=== PATIENT | male | born 1965 | race African-American/Black ===

== ENCOUNTER 2017-04-03 10:17 | Inpatient (IN) | payer OTHER ==
[2017-04-03 11:05] VITALS: BMI 26.4
--- NOTE | 2017-04-03 11:09 | HP ---
CIWA Score - CIWA Score Nausea/Vomitin-Mild Nausea/No Vomiting Muscle Tremors: 4-Moderate,w/Arms Extend Anxiety: 4-Mod. Anxious/Guarded Agitation: 1-Slight > Activity Paroxysmal Sweats: 1-Minimal Palms Moist Orientation: 0-Oriented Tacttile Disturbances: 0-None Auditory Disturbances: 1-Very Mild Visual Disturbances: 1-Very Mild Sensitivity Headache: 2-Mild CIWA-Ar Total Score: 15 Admission ROS BHS - HPI Chief Complaint: I want help to stop using drugs and drinking Allergies/Adverse Reactions: Allergies Allergy/AdvReac Type Severity Reaction Status Date / Time No Known Allergies Allergy Verified 04/03/17 11:41 History of Present Illness: 52 yo gentleman here for detox from alcohol, also using cocaine. Last time in detox 3 days ago at [facility] but only stayed one day - prior to that last time in detox was here May 2016. NO seizures but did have black out. Exam Limitations: Clinical Condition - Ebola screening Have you traveled outside of the country in the last 21 days: No Have you had contact with anyone from an Ebola affected area: No Do you have a fever: No - Review of Systems Constitutional: Loss of Appetite, Changes in sleep EENT: reports: No Symptoms Reported Respiratory: reports: No Symptoms reported Cardiac: reports: No Symptoms Reported GI: reports: Poor Appetite, Indigestion : reports: Frequency Musculoskeletal: reports: No Symptoms Reported Integumentary: reports: No Symptoms Reported Neuro: reports: Headache Endocrine: reports: No Symptoms Reported Hematology: reports: No Symptoms Reported Psychiatric: reports: Judgement Intact, Mood/Affect Appropiate, Orientated x3, Anxious Other Systems: Reviewed and Negative Patient History - Patient Medical History Hx Anemia: No Hx Asthma: No Hx Chronic Obstructive Pulmonary Disease (COPD): No Hx Cancer: No Hx Cardiac Disorders: No Hx Congestive Heart Failure: No Hx Hypertension: Yes Hx Hypercholesterolemia: No Hx Pacemaker: No HX Cerebrovascular Accident: No Hx Seizures: No Hx Dementia: No Hx Diabetes: No Hx Gastrointestinal Disorders: No Hx Liver Disease: No Hx Genitourinary Disorders: No Hx Sexually Transmitted Disorders: No Hx Renal Disease (ESRD): No Hx Thyroid Disease: No Hx Human Immunodeficiency Virus (HIV): No Hx Hepatitis C: No Hx Depression: No Hx Suicide Attempt: No Hx Bipolar Disorder: No Hx Schizophrenia: No - Patient Surgical History Past Surgical History: No Hx Neurologic Surgery: No Hx Cataract Extraction: No Hx Cardiac Surgery: No Hx Lung Surgery: No Hx Breast Surgery: No Hx Breast Biopsy: No Hx Abdominal Surgery: No Hx Appendectomy: No Hx Cholecystectomy: No Hx Genitourinary Surgery: No Hx Section: No Hx Orthopedic Surgery: No Anesthesia Reaction: No - PPD History Previous Implant?: Yes Documented Results: Negative w/proof Date: 09/03/15 Results: 0mm PPD to be Administered?: Yes - Reproductive History Patient is a Female of Child Bearing Age (11 -55 yrs old): No (male) - Smoking Cessation Smoking history: Current every day smoker Have you smoked in the past 12 months: Yes Aproximately how many cigarettes per day: 10 Cigars Per Day: 0 Hx Chewing Tobacco Use: No Initiated information on smoking cessation: Yes 'Breaking Loose' booklet given: 04/03/17 (give on floor) - Substance & Tx. History Hx Alcohol Use: Yes Hx Substance Use: Yes Substance Use Type: Alcohol, Cocaine Hx Substance Use Treatment: Yes (detox, rehab) - Substances Abused Alcohol Route: Oral Frequency: Daily Amount used: two 40oz beers; two 1/2 pints Age of first use: 30 Date of Last Use: 04/03/17 Cocaine Route: Smoking Frequency: Daily Amount used: $200 Age of first use: 30 Date of Last Use: 04/03/17 Family Disease History - Family Disease History Family Disease History: CA: Father (ALZHIEMERS ), Mother (ALZHIEMERS ), Other: Father, Mother, Brother (3 - living, in recovery), Sister (3 - living , in recovery), Son (1 - age 20 - healthy), Daughter (1 - age 21 - no contact) Admission Physical Exam BHS - Vital Signs Vital Signs: Vital Signs Period Temp Pulse Resp BP Sys/Martinez Pulse Ox Last 24 Hr 96.6 F 64 18 129/78 - Physical General Appearance: Yes: Nourished, Appropriately Dressed, Mild Distress, Tremorous, Anxious HEENTM: Yes: Hearing grossly Normal, Normal ENT Inspection, Normocephalic, Normal Voice, Pharynx Normal, Other (coated tongue) Respiratory: Yes: Normal Breath Sounds, No Respiratory Distress Neck: Yes: No masses,lesions,Nodules, Supple Breast: Yes: Breast Exam Deferred Cardiology: Yes: Regular Rhythm, Regular Rate Abdominal: Yes: Soft Genitourinary: Yes: Frequency Back: Yes: Normal Inspection Musculoskeletal: Yes: full range of Motion, Gait Steady Extremities: Yes: Normal Inspection, Normal Range of Motion, Non-Tender Neurological: Yes: Fully Oriented, Alert, Normal Mood/Affect, Normal Response Integumentary: Yes: Normal Color, Dry, Warm Lymphatic: Yes: Within Normal Limits - Diagnostic (1) Alcohol dependence with uncomplicated withdrawal Current Visit: Yes Status: Chronic (2) Cocaine dependence Current Visit: Yes Status: Chronic Qualifiers: Substance use status: uncomplicated Qualified Code(s): F14.20 - Cocaine dependence, uncomplicated (3) HTN (hypertension) Current Visit: Yes Status: Chronic Qualifiers: Hypertension type: essential hypertension Qualified Code(s): I10 - Essential (primary) hypertension (4) Nicotine dependence Current Visit: Yes Status: Chronic Qualifiers: Nicotine product type: cigarettes Substance use status: uncomplicated Qualified Code(s): F17.210 - Nicotine dependence, cigarettes, uncomplicated Cleared for Admission BHS - Detox or Rehab [facility] Level of Care: Medically Managed Detox Regimen/Protocol: Librium [facility] Breath Alcohol Content Breath Alcohol Content: 0
[2017-04-03] MEDS ORDERED: MAG HYDROX/AL HYDROX/SIMETH 30 ML UNIT-DOSE CUP PO PRN (11:23)
[2017-04-03] MEDS ORDERED: chlordiazePOXIDE HCL 25 MG CAPSULE PO PRN (11:23)
[2017-04-03] MEDS ORDERED: hydrOXYzine PAMOATE 50 MG CAPSULE (FP) PO PRN (11:23)
[2017-04-03] MEDS ORDERED: IBUPROFEN 400 MG TABLET (FP) PO PRN (11:23)
[2017-04-03] MEDS ORDERED: guaiFENesin/D-METHORPHAN HB 10 ML UNIT-DOSE CUPS PO PRN (11:23)
[2017-04-03] MEDS ORDERED: LOPERAMIDE HCL 2 MG CAPSULE PO PRN (11:23)
[2017-04-03] MEDS ORDERED: MAGNESIUM HYDROX 2400MG/30ML ORAL SUSPENSION 30 ML CUP PO PRN (11:23)
[2017-04-03] MEDS ORDERED: P-EPHED 60MG/TRIPROLIDI 2.5MG TABLET PO PRN (11:23)
[2017-04-03] MEDS ORDERED: ACETAMINOPHEN 325 MG TABLET (FP) PO PRN (11:23)
[2017-04-03] MEDS ORDERED: MAGNESIUM CITRATE 300 ML BOTTLE PO PRN (11:23)
[2017-04-03] MEDS ORDERED: MENTHOL/PHENOL 1 EACH UD MM PRN (11:23)
[2017-04-03] MEDS ORDERED: chlordiazePOXIDE HCL 25 MG CAPSULE PO ONE (12:00)
[2017-04-03] MEDS: amLODIPine BESYLATE 10 MG TABLET (FP) PO SCH (13:14)
[2017-04-03] MEDS: chlordiazePOXIDE HCL 25 MG CAPSULE PO SCH ×2 (18:09→23:20)
[2017-04-03] MEDS ORDERED: diphenhydrAMINE HCL 50 MG CAPSULE PO PRN (22:00)
[2017-04-03 22:34] LABS: URINE APPEARANCE CLEAR; URINE BILIRUBIN NEGATIVE (NEGATIVE); URINE BLOOD 3+ (NEGATIVE); URINE COLOR LTYELLOW; URINE GLUCOSE (UA) NEGATIVE (NEGATIVE); URINE KETONE NEGATIVE (NEGATIVE); URINE LEUK ESTERASE NEGATIVE (NEGATIVE); URINE NITRITE NEGATIVE (NEGATIVE); URINE PROTEIN NEGATIVE (NEGATIVE); URINE UROBILINOGEN NEGATIVE mg/dL (0.2-1.0)
[2017-04-03 22:44] LABS: URINE BACTERIA RARE /hpf (NONE SEEN); URINE HYALINE CAST 3 /lpf; URINE MUCUS RARE; URINE RBC 2 /hpf (0-3); URINE WBC <1 /hpf (3-5)
[2017-04-03] MEDS: THIAMINE HCL 100 MG TABLET (FP) PO SCH (23:19)
[2017-04-04] MEDS: chlordiazePOXIDE HCL 25 MG CAPSULE PO SCH ×4 (05:45→22:19)
[2017-04-04 09:52] LABS: MCH 29.9 pg (25.7-33.7); MEAN CELL VOLUME 90.7 fl (80-96); MEAN PLT VOLUME 9.5 fl (7.5-11.1); PLATELET COUNT 175 K/MM3 (134-434); RDW 14.9 % (11.9-15.9); WHITE BLOOD COUNT 5.6 K/mm3 (4.0-10.0)
--- NOTE | 2017-04-04 09:55 | EKG ---
Test Reason : Blood Pressure : / mmHG Vent. Rate : 067 BPM Atrial Rate : 067 BPM P-R Int : 172 ms QRS Dur : 080 ms QT Int : 420 ms P-R-T Axes : 082 067 049 degrees QTc Int : 443 ms NORMAL SINUS RHYTHM SEPTAL INFARCT , AGE UNDETERMINED ABNORMAL ECG NO PREVIOUS ECGS AVAILABLE Confirmed by MD SANDY, DEBBY ([id number]) on 04/04/2017 9:55:11 AM Referred By: Confirmed By:DEBBY DELGADO MD
[2017-04-04 10:29] LABS: ALK PHOS 43 U/L (45-117); ANION GAP 9 (8-16); BILIRUBIN,TOTAL 0.7 mg/dL (0.2-1.0); CALCIUM 8.4 mg/dL (8.5-10.1); CO2 29 mmol/L (21-32); CREATININE 1.4 mg/dL (0.7-1.3); GLUCOSE,RANDOM 80 mg/dL (74-106); SGOT/AST 25 U/L (15-37); SGPT/ALT 27 U/L (12-78); TOT PROT 5.7 g/dl (6.4-8.2)
[2017-04-04] MEDS: amLODIPine BESYLATE 10 MG TABLET (FP) PO SCH (10:41)
[2017-04-04] MEDS: PRENATAL VITAMINS W/ FOLIC ACID TABLET (FP) PO SCH (10:41)
--- NOTE | 2017-04-04 16:26 | PN ---
S CIWA - CIWA Score Nausea/Vomitin Muscle Tremors: 4-Moderate,w/Arms Extend Anxiety: 4-Mod. Anxious/Guarded Agitation: 4-Moderately Restless Paroxysmal Sweats: 3 Orientation: 0-Oriented Tacttile Disturbances: 1-Very Mild Itch/Numbness Auditory Disturbances: 0-None Visual Disturbances: 0-None Headache: 2-Mild CIWA-Ar Total Score: 21 BHS Progress Note (SOAP) Subjective: Sweating, nausea, tremor, chills, interrupted sleep Objective: 04/04/17 16:22 Last Vital Signs Temp Pulse Resp BP Pulse Ox 97.3 F L 69 18 125/89 04/04/17 06:00 04/04/17 06:00 04/04/17 06:00 04/04/17 06:00 Laboratory Tests 04/03/17 04/04/17 04/04/17 22:00 07:50 07:50 WBC 5.6 RBC 4.27 Hgb 12.8 Hct 38.7 MCV 90.7 MCH 29.9 MCHC 33.0 RDW 14.9 Plt Count 175 MPV 9.5 Sodium 145 Potassium 3.6 Chloride 107 Carbon Dioxide 29 Anion Gap 9 BUN 24 H D Creatinine 1.4 H Creat Clearance w eGFR 53.22 Random Glucose 80 Calcium 8.4 L Total Bilirubin 0.7 D AST 25 D ALT 27 D Alkaline Phosphatase 43 L Total Protein 5.7 L Albumin 3.0 L Urine Color Ltyellow Urine Appearance Clear Urine pH 5.0 Ur Specific [place] 1.025 Urine Protein Negative Urine Glucose (UA) Negative Urine Ketones Negative Urine Blood 3+ H Urine Nitrite Negative Urine Bilirubin Negative Urine Urobilinogen Negative Ur Leukocyte Esterase Negative Urine RBC 2 Urine WBC <1 Urine Bacteria Rare Hyaline Casts 3 Urine Mucus Rare RPR Titer 04/04/17 07:50 WBC RBC Hgb Hct MCV MCH MCHC RDW Plt Count MPV Sodium Potassium Chloride Carbon Dioxide Anion Gap BUN Creatinine Creat Clearance w eGFR Random Glucose Calcium Total Bilirubin AST ALT Alkaline Phosphatase Total Protein Albumin Urine Color Urine Appearance Urine pH Ur Specific [place] Urine Protein Urine Glucose (UA) Urine Ketones Urine Blood Urine Nitrite Urine Bilirubin Urine Urobilinogen Ur Leukocyte Esterase Urine RBC Urine WBC Urine Bacteria Hyaline Casts Urine Mucus RPR Titer Nonreactive Labs noted: BUN 24, serum creatinine 1.4, GFR 53.22, abnormal UA Assessment: 04/04/17 16:26 Withdrawal symptoms Noted with TONIA and abnormal UA Plan: Continue detox TONIA: encouraged to drink more water, repeat BMP Abnormal UA: encouraged to drink more water, repeat UA
[2017-04-04] MEDS: THIAMINE HCL 100 MG TABLET (FP) PO SCH (22:19)
[2017-04-05] MEDS: chlordiazePOXIDE HCL 25 MG CAPSULE PO SCH ×2 (05:33→10:38)
[2017-04-05 10:22] LABS: ANION GAP 7 (8-16); CALCIUM 8.5 mg/dL (8.5-10.1); CO2 29 mmol/L (21-32); CREATININE 1.2 mg/dL (0.7-1.3); GLUCOSE,RANDOM 77 mg/dL (74-106)
[2017-04-05] MEDS: amLODIPine BESYLATE 10 MG TABLET (FP) PO SCH (10:38)
[2017-04-05] MEDS: PRENATAL VITAMINS W/ FOLIC ACID TABLET (FP) PO SCH (10:38)
--- NOTE | 2017-04-05 11:00 | PN ---
S CIWA - CIWA Score Nausea/Vomitin Muscle Tremors: 4-Moderate,w/Arms Extend Anxiety: 4-Mod. Anxious/Guarded Agitation: 4-Moderately Restless Paroxysmal Sweats: 3 Orientation: 0-Oriented Tacttile Disturbances: 1-Very Mild Itch/Numbness Auditory Disturbances: 0-None Visual Disturbances: 0-None Headache: 1-Very Mild CIWA-Ar Total Score: 20 BHS Progress Note (SOAP) Subjective: nausea, sweats, interrupted sleep, anxiety, tremors Objective: 04/05/17 10:59 Vital Signs - 8 hr 04/05/17 04/05/17 04/05/17 03:39 06:27 09:16 Temperature 96.7 F L 96.6 F L Pulse Rate 62 65 Respiratory 18 18 18 Rate Blood Pressure 136/96 131/97 Laboratory Tests 04/03/17 04/04/17 04/04/17 22:00 07:50 07:50 WBC 5.6 RBC 4.27 Hgb 12.8 Hct 38.7 MCV 90.7 MCH 29.9 MCHC 33.0 RDW 14.9 Plt Count 175 MPV 9.5 Sodium 145 Potassium 3.6 Chloride 107 Carbon Dioxide 29 Anion Gap 9 BUN 24 H D Creatinine 1.4 H Creat Clearance w eGFR 53.22 Random Glucose 80 Calcium 8.4 L Total Bilirubin 0.7 D AST 25 D ALT 27 D Alkaline Phosphatase 43 L Total Protein 5.7 L Albumin 3.0 L Urine Color Ltyellow Urine Appearance Clear Urine pH 5.0 Ur Specific [place] 1.025 Urine Protein Negative Urine Glucose (UA) Negative Urine Ketones Negative Urine Blood 3+ H Urine Nitrite Negative Urine Bilirubin Negative Urine Urobilinogen Negative Ur Leukocyte Esterase Negative Urine RBC 2 Urine WBC <1 Urine Bacteria Rare Hyaline Casts 3 Urine Mucus Rare RPR Titer 04/04/17 04/05/17 07:50 07:00 WBC RBC Hgb Hct MCV MCH MCHC RDW Plt Count MPV Sodium 144 Potassium 3.8 Chloride 108 H Carbon Dioxide 29 Anion Gap 7 L BUN 17 D Creatinine 1.2 Creat Clearance w eGFR Random Glucose 77 Calcium 8.5 Total Bilirubin AST ALT Alkaline Phosphatase Total Protein Albumin Urine Color Urine Appearance Urine pH Ur Specific [place] Urine Protein Urine Glucose (UA) Urine Ketones Urine Blood Urine Nitrite Urine Bilirubin Urine Urobilinogen Ur Leukocyte Esterase Urine RBC Urine WBC Urine Bacteria Hyaline Casts Urine Mucus RPR Titer Nonreactive Assessment: 04/05/17 11:00 withdrawal sx Plan: cont detox, fluids
[2017-04-05] MEDS: chlordiazePOXIDE 5 MG CAPSULE PO SCH ×2 (17:09→22:35)
[2017-04-05 20:02] LABS: URINE APPEARANCE CLEAR; URINE BILIRUBIN NEGATIVE (NEGATIVE); URINE BLOOD NEGATIVE (NEGATIVE); URINE COLOR LT. YELLOW; URINE GLUCOSE (UA) NEGATIVE (NEGATIVE); URINE KETONE NEGATIVE (NEGATIVE); URINE LEUK ESTERASE NEGATIVE (NEGATIVE); URINE NITRITE NEGATIVE (NEGATIVE); URINE PROTEIN NEGATIVE (NEGATIVE); URINE UROBILINOGEN 0.2 mg/dL (0.2-1.0)
[2017-04-05] MEDS: THIAMINE HCL 100 MG TABLET (FP) PO SCH (22:35)
[2017-04-06] MEDS: chlordiazePOXIDE 5 MG CAPSULE PO SCH ×2 (05:39→10:34)
[2017-04-06] MEDS: PRENATAL VITAMINS W/ FOLIC ACID TABLET (FP) PO SCH (10:34)
[2017-04-06] MEDS: amLODIPine BESYLATE 10 MG TABLET (FP) PO SCH (10:34)
--- NOTE | 2017-04-06 12:41 | PN ---
BHS Progress Note (SOAP) Subjective: DECREASED ANXIETY,TREMORS. Objective: 04/06/17 12:40 Vital Signs Temperature 98.5 F 04/06/17 09:21 Pulse Rate 66 04/06/17 09:21 Respiratory Rate 16 04/06/17 09:21 Blood Pressure 138/97 04/06/17 09:21 O2 Sat by Pulse Oximetry (%) Laboratory Last Values WBC 5.6 K/mm3 (4.0-10.0) 04/04/17 07:50 RBC 4.27 M/mm3 (4.00-5.60) 04/04/17 07:50 Hgb 12.8 GM/dL (11.7-16.9) 04/04/17 07:50 Hct 38.7 % (35.4-49) 04/04/17 07:50 MCV 90.7 fl (80-96) 04/04/17 07:50 MCH 29.9 pg (25.7-33.7) 04/04/17 07:50 MCHC 33.0 g/dl (32.0-35.9) 04/04/17 07:50 RDW 14.9 % (11.9-15.9) 04/04/17 07:50 Plt Count 175 K/MM3 (134-434) 04/04/17 07:50 MPV 9.5 fl (7.5-11.1) 04/04/17 07:50 Sodium 144 mmol/L (136-145) 04/05/17 07:00 Potassium 3.8 mmol/L (3.5-5.1) 04/05/17 07:00 Chloride 108 mmol/L (98-107) H 04/05/17 07:00 Carbon Dioxide 29 mmol/L (21-32) 04/05/17 07:00 Anion Gap 7 (8-16) L 04/05/17 07:00 BUN 17 mg/dL (7-18) D 04/05/17 07:00 Creatinine 1.2 mg/dL (0.7-1.3) 04/05/17 07:00 Creat Clearance w eGFR 53.22 (>60) 04/04/17 07:50 Random Glucose 77 mg/dL (74-106) 04/05/17 07:00 Calcium 8.5 mg/dL (8.5-10.1) 04/05/17 07:00 Total Bilirubin 0.7 mg/dL (0.2-1.0) D 04/04/17 07:50 AST 25 U/L (15-37) D 04/04/17 07:50 ALT 27 U/L (12-78) D 04/04/17 07:50 Alkaline Phosphatase 43 U/L (45-117) L 04/04/17 07:50 Total Protein 5.7 g/dl (6.4-8.2) L 04/04/17 07:50 Albumin 3.0 g/dl (3.4-5.0) L 04/04/17 07:50 Urine Color Lt. yellow 04/05/17 15:39 Urine Appearance Clear 04/05/17 15:39 Urine pH 8.0 (5.0-8.0) D 04/05/17 15:39 Ur Specific [place] 1.020 (1.005-1.025) 04/05/17 15:39 Urine Protein Negative (NEGATIVE) 04/05/17 15:39 Urine Glucose (UA) Negative (NEGATIVE) 04/05/17 15:39 Urine Ketones Negative (NEGATIVE) 04/05/17 15:39 Urine Blood Negative (NEGATIVE) 04/05/17 15:39 Urine Nitrite Negative (NEGATIVE) 04/05/17 15:39 Urine Bilirubin Negative (NEGATIVE) 04/05/17 15:39 Urine Urobilinogen 0.2 mg/dL (0.2-1.0) 04/05/17 15:39 Ur Leukocyte Esterase Negative (NEGATIVE) 04/03/17 22:00 Urine RBC 2 /hpf (0-3) 04/03/17 22:00 Urine WBC <1 /hpf (3-5) 04/03/17 22:00 Urine Bacteria Rare /hpf (NONE SEEN) 04/03/17 22:00 Hyaline Casts 3 /lpf 04/03/17 22:00 Urine Mucus Rare 04/03/17 22:00 RPR Titer Nonreactive (NONREACTIVE) 04/04/17 07:50 Assessment: 04/06/17 12:41 WITHDRAWAL SX Plan: CONTINUE DETOX
[2017-04-06 13:03] LABS: HIV 1 & 2 AB NEGATIVE; HIV 1 AGp24 NEGATIVE
[2017-04-06] MEDS ORDERED: chlordiazePOXIDE HCL 10 MG CAPSULE PO SCH (17:00)
--- NOTE | 2017-04-06 21:59 | DS ---
[facility] Detox Discharge Summary Admission Date: 04/03/17 Discharge Date: 04/06/17 - History Present History: Alcohol Dependence Additional Comments: PT. DENIES DETOX SYMPTOMS AND REPORTS HE FEELS WELL. HE REQUESTED AN EARLY DISCHARGE. PT. STATED HE DID NOT NEED A REFERRAL FOR REHAB SERVICES SINCE HE PLANS TO GO TO [facility] IN THE MORNING FOR CONTINUED TREATMENT. PT. DISCHARGED FROM DETOX WITH REFILLS FOR REQUESTED MEDICATIONS. Pertinent Past History: HTN - Physical Exam Results Vital Signs: Vital Signs Temperature 97.0 F L 04/06/17 17:26 Pulse Rate 74 04/06/17 17:26 Respiratory Rate 18 04/06/17 17:26 Blood Pressure 114/72 04/06/17 17:26 O2 Sat by Pulse Oximetry (%) - Treatment Hospital Course: Detox Protocol Followed, Detoxed Safely, Responded well, Discharged Condition Good Patient has Accepted a Rehab Referral to: STATES HE PLANS TO GO TO [facility] FOR OUTPATIENT SERVICES IN THE MORN - Medication Discharge Medications: Ambulatory Orders Amlodipine Besylate [Norvasc -] 10 mg PO DAILY #30 tablet 04/06/17 - Diagnosis (1) Alcohol dependence with uncomplicated withdrawal Current Visit: Yes Status: Chronic (2) HTN (hypertension) Current Visit: Yes Status: Chronic Qualifiers: Hypertension type: essential hypertension Qualified Code(s): I10 - Essential (primary) hypertension (3) Nicotine dependence Current Visit: Yes Status: Chronic Qualifiers: Nicotine product type: cigarettes Substance use status: uncomplicated Qualified Code(s): F17.210 - Nicotine dependence, cigarettes, uncomplicated (4) Cocaine dependence Current Visit: Yes Status: Chronic Qualifiers: Substance use status: uncomplicated Qualified Code(s): F14.20 - Cocaine dependence, uncomplicated - AMA Did Patient Leave Against Medical Advice: No
[2017-04-06 22:17] VITALS: BP 123/77; PULSE 83; TEMP 98.3
== END 2017-04-06 22:19 | disposition home or self-care (01) | DRG 773 ==
LOC: YASAS 10:17 → Y3N 11:46
PROVIDERS: ADMIT Internal Medicine Addiction Medicine; ATTEND Internal Medicine Addiction Medicine
PROC: HZ2ZZZZ Detoxification Services for Substance Abuse Treatment (ICD-10-PCS; principal; 2017-04-03)
DX: F11.23 Opioid dependence with withdrawal (principal); F14.20 Cocaine dependence, uncomplicated; F17.210 Nicotine dependence, cigarettes, uncomplicated; I10 Essential (primary) hypertension; N17.9 Acute kidney failure, unspecified; R82.90 Unspecified abnormal findings in urine; Z59.0 Homelessness
CPT/HCPCS: 36415; 80048; 80053; 81003; 81015; 85027; 86593; 87389; 93005; 93010

== ENCOUNTER 2017-06-14 15:48 | Inpatient (IN) | payer OTHER ==
[2017-06-14 17:34] VITALS: BMI 26.4
--- NOTE | 2017-06-14 20:23 | HP ---
CIWA Score - CIWA Score Nausea/Vomitin-No Nausea/No Vomiting Muscle Tremors: 4-Moderate,w/Arms Extend Anxiety: 4-Mod. Anxious/Guarded Agitation: 4-Moderately Restless Paroxysmal Sweats: 1-Minimal Palms Moist Orientation: 0-Oriented Tacttile Disturbances: 0-None Auditory Disturbances: 0-None Visual Disturbances: 0-None Headache: 1-Very Mild CIWA-Ar Total Score: 14 Admission ROS BHS - HPI Chief Complaint: withdrawal sx Allergies/Adverse Reactions: Allergies Allergy/AdvReac Type Severity Reaction Status Date / Time No Known Allergies Allergy Verified 04/03/17 11:41 History of Present Illness: 52 years old male with long history of alcohol cocaine nicotine dependence has hypertension is admitted to detox Exam Limitations: No Limitations - Ebola screening Have you traveled outside of the country in the last 21 days: No Have you had contact with anyone from an Ebola affected area: No Have you been sick,other than usual withdrawal symptoms: No Do you have a fever: No - Review of Systems Constitutional: Chills, Weight Stable EENT: reports: No Symptoms Reported Respiratory: reports: No Symptoms reported Cardiac: reports: No Symptoms Reported GI: reports: Nausea, Poor Fluid Intake, Abdominal cramping : reports: No Symptoms Reported Musculoskeletal: reports: No Symptoms Reported Integumentary: reports: Dryness Neuro: reports: Tremors Endocrine: reports: No Symptoms Reported Hematology: reports: No Symptoms Reported Psychiatric: reports: Judgement Intact, Mood/Affect Appropiate, Orientated x3 Other Systems: Reviewed and Negative Patient History - Patient Medical History Hx Anemia: No Hx Asthma: No Hx Chronic Obstructive Pulmonary Disease (COPD): No Hx Cancer: No Hx Cardiac Disorders: No Hx Congestive Heart Failure: No Hx Hypertension: Yes Hx Hypercholesterolemia: No Hx Pacemaker: No HX Cerebrovascular Accident: No Hx Seizures: No Hx Dementia: No Hx Diabetes: No Hx Gastrointestinal Disorders: No Hx Liver Disease: No Hx Genitourinary Disorders: No Hx Sexually Transmitted Disorders: No Hx Renal Disease (ESRD): No Hx Thyroid Disease: No Hx Human Immunodeficiency Virus (HIV): No Hx Hepatitis C: No Hx Depression: No Hx Suicide Attempt: No Hx Bipolar Disorder: No Hx Schizophrenia: No - Patient Surgical History Past Surgical History: No Hx Neurologic Surgery: No Hx Cataract Extraction: No Hx Cardiac Surgery: No Hx Lung Surgery: No Hx Breast Surgery: No Hx Breast Biopsy: No Hx Abdominal Surgery: No Hx Appendectomy: No Hx Cholecystectomy: No Hx Genitourinary Surgery: No Hx Orthopedic Surgery: No - PPD History Previous Implant?: Yes Documented Results: Negative w/proof Implanted On Prior [facility] Admission?: Yes Date: 04/05/17 Results: 0mm PPD to be Administered?: No - Smoking Cessation Smoking history: Current every day smoker Have you smoked in the past 12 months: Yes Aproximately how many cigarettes per day: 2 Cigars Per Day: 0 Hx Chewing Tobacco Use: No Initiated information on smoking cessation: Yes 'Breaking Loose' booklet given: 06/14/17 - Substance & Tx. History Hx Alcohol Use: Yes Hx Substance Use: Yes Substance Use Type: Alcohol, Cocaine Hx Substance Use Treatment: Yes (02/2017 [facility] - Substances Abused Alcohol Route: Oral Frequency: Daily Amount used: LIQUOR- 1 PINT Age of first use: 30 Date of Last Use: 06/14/17 Crack Route: Smoking Frequency: Daily Amount used: 6 BAGS Age of first use: 30 Date of Last Use: 06/14/17 Family Disease History - Family Disease History Family Disease History: CA: Father (ALZHIEMERS ), Mother (ALZHIEMERS ), Other: Father, Mother, Brother (3 - living, in recovery), Sister (3 - living , in recovery), Son (1 - age 20 - healthy), Daughter (1 - age 21 - no contact) Admission Physical Exam BHS - Vital Signs Vital Signs: Vital Signs - 24 hr 06/14/17 17:31 Temperature 97.7 F Pulse Rate 80 Respiratory 18 Rate Blood Pressure 150/100 - Physical General Appearance: Yes: Appropriately Dressed, Mild Distress, Tremorous, Irritable, Sweating, Anxious HEENTM: Yes: Hearing grossly Normal, Normal ENT Inspection, Normocephalic, Normal Voice Respiratory: Yes: Chest Non-Tender, Lungs Clear, Normal Breath Sounds, No Respiratory Distress, No Accessory Muscle Use Neck: Yes: Supple, Trachea in good position Breast: Yes: Breasts Symetrical Cardiology: Yes: Regular Rhythm, Regular Rate, S1, S2 Abdominal: Yes: Normal Bowel Sounds, Non Tender, Soft Genitourinary: Yes: Within Normal Limits Back: Yes: Normal Inspection Musculoskeletal: Yes: full range of Motion, Gait Steady Extremities: Yes: Normal Inspection, Normal Range of Motion, Non-Tender, Tremors Neurological: Yes: Fully Oriented, Alert, Motor Strength 5/5, Normal Mood/Affect , Normal Response Integumentary: Yes: Dry, Warm Lymphatic: Yes: Within Normal Limits - Diagnostic (1) Alcohol dependence with uncomplicated withdrawal Current Visit: Yes Status: Acute (2) HTN (hypertension) Current Visit: Yes Status: Chronic Qualifiers: Hypertension type: essential hypertension Qualified Code(s): I10 - Essential (primary) hypertension (3) Nicotine dependence Current Visit: Yes Status: Acute Qualifiers: Nicotine product type: cigarettes Substance use status: in withdrawal Qualified Code(s): F17.213 - Nicotine dependence, cigarettes, with withdrawal Cleared for Admission [facility] - Detox or Rehab [facility] Level of Care: Medically Managed Detox Regimen/Protocol: Librium [facility] Breath Alcohol Content Breath Alcohol Content: 0 Urine Drug Screen - Results Drug Screen Negative: No Urine Drug Screen Results: OMAR-Cocaine
[2017-06-14] MEDS ORDERED: LOPERAMIDE HCL 2 MG CAPSULE PO PRN (20:25)
[2017-06-14] MEDS ORDERED: MENTHOL/PHENOL 1 EACH UD MM PRN (20:25)
[2017-06-14] MEDS ORDERED: guaiFENesin/D-METHORPHAN HB 10 ML UNIT-DOSE CUPS PO PRN (20:25)
[2017-06-14] MEDS ORDERED: MAGNESIUM CITRATE 300 ML BOTTLE PO PRN (20:25)
[2017-06-14] MEDS ORDERED: IBUPROFEN 400 MG TABLET (FP) PO PRN (20:25)
[2017-06-14] MEDS ORDERED: ACETAMINOPHEN 325 MG TABLET (FP) PO PRN (20:25)
[2017-06-14] MEDS ORDERED: NICOTINE POLACRILEX 2 MG GUM BC PRN (20:25)
[2017-06-14] MEDS ORDERED: P-EPHED 60MG/TRIPROLIDI 2.5MG TABLET PO PRN (20:25)
[2017-06-14] MEDS ORDERED: MAG HYDROX/AL HYDROX/SIMETH 30 ML UNIT-DOSE CUP PO PRN (20:25)
[2017-06-14] MEDS ORDERED: chlordiazePOXIDE HCL 25 MG CAPSULE PO PRN (20:25)
[2017-06-14] MEDS ORDERED: MAGNESIUM HYDROX 2400MG/30ML ORAL SUSPENSION 30 ML CUP PO PRN (20:25)
[2017-06-14] MEDS ORDERED: cloNIDine HCL 0.1 MG TABLET PO PRN (20:30)
[2017-06-14] MEDS: amLODIPine BESYLATE 10 MG TABLET (FP) PO SCH (21:15)
[2017-06-14] MEDS: THIAMINE HCL 100 MG TABLET (FP) PO SCH (21:18)
[2017-06-14] MEDS: chlordiazePOXIDE HCL 25 MG CAPSULE PO SCH (22:17)
[2017-06-14] MEDS: MINERAL OIL/PETROLAT/WATER TOPICAL CREAM 113 GM JAR TP SCH (22:53)
[2017-06-14] MEDS: OMEGA-3 ACID ETHYL ESTERS (FATTY-ACIDS) 1 GM CAPSULE (FP) PO SCH ×2 (22:54→22:55)
[2017-06-15 00:53] LABS: URINE APPEARANCE CLEAR; URINE BILIRUBIN NEGATIVE (NEGATIVE); URINE BLOOD 2+ (NEGATIVE); URINE COLOR YELLOW; URINE GLUCOSE (UA) NEGATIVE (NEGATIVE); URINE KETONE NEGATIVE (NEGATIVE); URINE NITRITE NEGATIVE (NEGATIVE); URINE PROTEIN NEGATIVE (NEGATIVE); URINE UROBILINOGEN NEGATIVE mg/dL (0.2-1.0)
[2017-06-15 01:13] LABS: URINE MUCUS RARE; URINE RBC 9 /hpf (0-3)
[2017-06-15] MEDS: chlordiazePOXIDE HCL 25 MG CAPSULE PO SCH ×4 (05:44→22:17)
[2017-06-15 09:54] LABS: MCH 29.4 pg (25.7-33.7); MCHC 32.5 g/dl (32.0-35.9); MEAN CELL VOLUME 90.5 fl (80-96); MEAN PLT VOLUME 9.6 fl (7.5-11.1); PLATELET COUNT 185 K/MM3 (134-434); RDW 14.5 % (11.9-15.9); WHITE BLOOD COUNT 5.4 K/mm3 (4.0-10.0)
[2017-06-15] MEDS: OMEGA-3 ACID ETHYL ESTERS (FATTY-ACIDS) 1 GM CAPSULE (FP) PO SCH ×2 (10:20→22:18)
[2017-06-15] MEDS: amLODIPine BESYLATE 10 MG TABLET (FP) PO SCH (10:20)
[2017-06-15] MEDS: PRENATAL VITAMINS W/ FOLIC ACID TABLET (FP) PO SCH (10:20)
[2017-06-15] MEDS: NICOTINE 14 MG/24 HOURS TOPICAL PATCH TD SCH (10:21)
[2017-06-15 10:35] LABS: ALBUMIN 3.4 g/dl (3.4-5.0); ALK PHOS 59 U/L (45-117); ANION GAP 8 (8-16); BILIRUBIN,TOTAL 0.5 mg/dL (0.2-1.0); CALCIUM 8.6 mg/dL (8.5-10.1); CO2 27 mmol/L (21-32); CREATININE 1.3 mg/dL (0.7-1.3); GLUCOSE,RANDOM 81 mg/dL (74-106); SGOT/AST 21 U/L (15-37); SGPT/ALT 25 U/L (12-78); TOT PROT 6.3 g/dl (6.4-8.2)
--- NOTE | 2017-06-15 11:08 | PN ---
[facility] CIWA - CIWA Score Nausea/Vomitin-No Nausea/No Vomiting Muscle Tremors: 4-Moderate,w/Arms Extend Anxiety: 4-Mod. Anxious/Guarded Agitation: 4-Moderately Restless Paroxysmal Sweats: 1-Minimal Palms Moist Orientation: 0-Oriented Tacttile Disturbances: 3-Moderate Itch/Numb/Burn Auditory Disturbances: 0-None Visual Disturbances: 0-None Headache: 0-None Present CIWA-Ar Total Score: 16 S Progress Note (SOAP) Subjective: ANXIETY,SWEATS,MUSCLE ACHES,FATIGUE. Objective: 06/15/17 11:08 Vital Signs Temperature 96.7 F L 06/15/17 10:26 Pulse Rate 84 06/15/17 10:26 Respiratory Rate 18 06/15/17 10:26 Blood Pressure 148/99 06/15/17 10:26 O2 Sat by Pulse Oximetry (%) Laboratory Last Values WBC 5.4 K/mm3 (4.0-10.0) 06/15/17 07:00 RBC 4.65 M/mm3 (4.00-5.60) 06/15/17 07:00 Hgb 13.7 GM/dL (11.7-16.9) 06/15/17 07:00 Hct 42.1 % (35.4-49) 06/15/17 07:00 MCV 90.5 fl (80-96) 06/15/17 07:00 MCH 29.4 pg (25.7-33.7) 06/15/17 07:00 MCHC 32.5 g/dl (32.0-35.9) 06/15/17 07:00 RDW 14.5 % (11.9-15.9) 06/15/17 07:00 Plt Count 185 K/MM3 (134-434) 06/15/17 07:00 MPV 9.6 fl (7.5-11.1) 06/15/17 07:00 Sodium 144 mmol/L (136-145) 06/15/17 07:00 Potassium 3.6 mmol/L (3.5-5.1) 06/15/17 07:00 Chloride 109 mmol/L (98-107) H 06/15/17 07:00 Carbon Dioxide 27 mmol/L (21-32) 06/15/17 07:00 Anion Gap 8 (8-16) 06/15/17 07:00 BUN 22 mg/dL (7-18) H D 06/15/17 07:00 Creatinine 1.3 mg/dL (0.7-1.3) 06/15/17 07:00 Creat Clearance w eGFR 57.97 (>60) 06/15/17 07:00 Random Glucose 81 mg/dL (74-106) 06/15/17 07:00 Calcium 8.6 mg/dL (8.5-10.1) 06/15/17 07:00 Total Bilirubin 0.5 mg/dL (0.2-1.0) D 06/15/17 07:00 AST 21 U/L (15-37) 06/15/17 07:00 ALT 25 U/L (12-78) 06/15/17 07:00 Alkaline Phosphatase 59 U/L (45-117) D 06/15/17 07:00 Total Protein 6.3 g/dl (6.4-8.2) L 06/15/17 07:00 Albumin 3.4 g/dl (3.4-5.0) 06/15/17 07:00 Urine Color Yellow 06/14/17 23:00 Urine Appearance Clear 06/14/17 23:00 Urine pH 5.0 (5.0-8.0) D 06/14/17 23:00 Ur Specific [place] 1.029 (1.001-1.035) 06/14/17 23:00 Urine Protein Negative (NEGATIVE) 06/14/17 23:00 Urine Glucose (UA) Negative (NEGATIVE) 06/14/17 23:00 Urine Ketones Negative (NEGATIVE) 06/14/17 23:00 Urine Blood 2+ (NEGATIVE) H 06/14/17 23:00 Urine Nitrite Negative (NEGATIVE) 06/14/17 23:00 Urine Bilirubin Negative (NEGATIVE) 06/14/17 23:00 Urine Urobilinogen Negative mg/dL (0.2-1.0) 06/14/17 23:00 Ur Epithelial Cells Rare /HPF (FEW) 06/14/17 23:00 Urine Mucus Rare 06/14/17 23:00 Assessment: 06/15/17 11:08 WITHDRAWAL SX Plan: CONTINUE DETOX
[2017-06-15 11:18] LABS: HIV 1 & 2 AB NEGATIVE; HIV 1 AGp24 NEGATIVE
[2017-06-15 11:40] LABS: URINE LEUK ESTERASE Negative (NEGATIVE)
--- NOTE | 2017-06-15 12:42 | EKG ---
Test Reason : Blood Pressure : / mmHG Vent. Rate : 073 BPM Atrial Rate : 073 BPM P-R Int : 170 ms QRS Dur : 080 ms QT Int : 388 ms P-R-T Axes : 081 083 062 degrees QTc Int : 427 ms NORMAL SINUS RHYTHM LEFT ATRIAL ABNORMALITY PROBABLE SEPTAL INFARCT (CITED ON OR BEFORE 03-APR-2017) ABNORMAL ECG WHEN COMPARED WITH ECG OF 03-APR-2017 13:28, NO SIGNIFICANT CHANGE WAS FOUND Confirmed by MONY SIMMONS MD ([id number]) on 06/15/2017 12:41:51 PM Referred By: Confirmed By:MONY SIMMONS MD
[2017-06-15] MEDS: THIAMINE HCL 100 MG TABLET (FP) PO SCH (22:16)
[2017-06-15] MEDS: MINERAL OIL/PETROLAT/WATER TOPICAL CREAM 113 GM JAR TP SCH (22:18)
[2017-06-16] MEDS: chlordiazePOXIDE HCL 25 MG CAPSULE PO SCH ×3 (05:40→17:09)
[2017-06-16] MEDS: NICOTINE 14 MG/24 HOURS TOPICAL PATCH TD SCH (10:17)
[2017-06-16] MEDS: amLODIPine BESYLATE 10 MG TABLET (FP) PO SCH (10:17)
[2017-06-16] MEDS: PRENATAL VITAMINS W/ FOLIC ACID TABLET (FP) PO SCH (10:17)
[2017-06-16] MEDS: OMEGA-3 ACID ETHYL ESTERS (FATTY-ACIDS) 1 GM CAPSULE (FP) PO SCH ×2 (10:17→22:12)
--- NOTE | 2017-06-16 10:41 | PN ---
[facility] CIWA - CIWA Score Nausea/Vomitin-No Nausea/No Vomiting Muscle Tremors: 4-Moderate,w/Arms Extend Anxiety: 4-Mod. Anxious/Guarded Agitation: 4-Moderately Restless Paroxysmal Sweats: 1-Minimal Palms Moist Orientation: 0-Oriented Tacttile Disturbances: 3-Moderate Itch/Numb/Burn Auditory Disturbances: 0-None Visual Disturbances: 0-None Headache: 0-None Present CIWA-Ar Total Score: 16 BHS Progress Note (SOAP) Subjective: FATIGUE,SWEATS,SLIGHT TREMORS. Objective: 06/16/17 10:41 Vital Signs Temperature 97.3 F L 06/16/17 09:52 Pulse Rate 78 06/16/17 09:52 Respiratory Rate 18 06/16/17 09:52 Blood Pressure 143/84 06/16/17 09:52 O2 Sat by Pulse Oximetry (%) Laboratory Last Values WBC 5.4 K/mm3 (4.0-10.0) 06/15/17 07:00 RBC 4.65 M/mm3 (4.00-5.60) 06/15/17 07:00 Hgb 13.7 GM/dL (11.7-16.9) 06/15/17 07:00 Hct 42.1 % (35.4-49) 06/15/17 07:00 MCV 90.5 fl (80-96) 06/15/17 07:00 MCH 29.4 pg (25.7-33.7) 06/15/17 07:00 MCHC 32.5 g/dl (32.0-35.9) 06/15/17 07:00 RDW 14.5 % (11.9-15.9) 06/15/17 07:00 Plt Count 185 K/MM3 (134-434) 06/15/17 07:00 MPV 9.6 fl (7.5-11.1) 06/15/17 07:00 Sodium 144 mmol/L (136-145) 06/15/17 07:00 Potassium 3.6 mmol/L (3.5-5.1) 06/15/17 07:00 Chloride 109 mmol/L (98-107) H 06/15/17 07:00 Carbon Dioxide 27 mmol/L (21-32) 06/15/17 07:00 Anion Gap 8 (8-16) 06/15/17 07:00 BUN 22 mg/dL (7-18) H D 06/15/17 07:00 Creatinine 1.3 mg/dL (0.7-1.3) 06/15/17 07:00 Creat Clearance w eGFR 57.97 (>60) 06/15/17 07:00 Random Glucose 81 mg/dL (74-106) 06/15/17 07:00 Calcium 8.6 mg/dL (8.5-10.1) 06/15/17 07:00 Total Bilirubin 0.5 mg/dL (0.2-1.0) D 06/15/17 07:00 AST 21 U/L (15-37) 06/15/17 07:00 ALT 25 U/L (12-78) 06/15/17 07:00 Alkaline Phosphatase 59 U/L (45-117) D 06/15/17 07:00 Total Protein 6.3 g/dl (6.4-8.2) L 06/15/17 07:00 Albumin 3.4 g/dl (3.4-5.0) 06/15/17 07:00 Urine Color Yellow 06/14/17 23:00 Urine Appearance Clear 06/14/17 23:00 Urine pH 5.0 (5.0-8.0) D 06/14/17 23:00 Ur Specific [place] 1.029 (1.001-1.035) 06/14/17 23:00 Urine Protein Negative (NEGATIVE) 06/14/17 23:00 Urine Glucose (UA) Negative (NEGATIVE) 06/14/17 23:00 Urine Ketones Negative (NEGATIVE) 06/14/17 23:00 Urine Blood 2+ (NEGATIVE) H 06/14/17 23:00 Urine Nitrite Negative (NEGATIVE) 06/14/17 23:00 Urine Bilirubin Negative (NEGATIVE) 06/14/17 23:00 Urine Urobilinogen Negative mg/dL (0.2-1.0) 06/14/17 23:00 Ur Leukocyte Esterase Negative (NEGATIVE) 06/14/17 23:00 Ur Epithelial Cells Rare /HPF (FEW) 06/14/17 23:00 Urine Mucus Rare 06/14/17 23:00 RPR Titer Nonreactive (NONREACTIVE) 06/15/17 07:00 HIV 1&2 Antibody Screen Negative 06/15/17 07:00 HIV P24 Antigen Negative 06/15/17 07:00 Assessment: 06/16/17 10:41 WITHDRAWAL SX Plan: CONTINUE DETOX
[2017-06-16] MEDS: THIAMINE HCL 100 MG TABLET (FP) PO SCH (22:11)
[2017-06-16] MEDS: MINERAL OIL/PETROLAT/WATER TOPICAL CREAM 113 GM JAR TP SCH (22:12)
[2017-06-16] MEDS: chlordiazePOXIDE 5 MG CAPSULE PO SCH (22:12)
[2017-06-17] MEDS: chlordiazePOXIDE 5 MG CAPSULE PO SCH ×3 (05:12→17:08)
[2017-06-17] MEDS: amLODIPine BESYLATE 10 MG TABLET (FP) PO SCH (10:34)
[2017-06-17] MEDS: PRENATAL VITAMINS W/ FOLIC ACID TABLET (FP) PO SCH (10:34)
[2017-06-17] MEDS: NICOTINE 14 MG/24 HOURS TOPICAL PATCH TD SCH (10:34)
[2017-06-17] MEDS: OMEGA-3 ACID ETHYL ESTERS (FATTY-ACIDS) 1 GM CAPSULE (FP) PO SCH (10:34)
--- NOTE | 2017-06-17 14:57 | PN ---
[facility] Progress Note (SOAP) Subjective: Sweating, Fatigue. Objective: PT. A 7 O X 2 (UNCERTAIN ABOUT DAY / DATE). PT. OBSERVED AMBULATING ON UNIT. NO ACUTE DISTRESS. 06/17/17 14:56 Vital Signs Temperature 97.2 F L 06/17/17 14:53 Pulse Rate 77 06/17/17 14:53 Respiratory Rate 18 06/17/17 14:53 Blood Pressure 138/84 06/17/17 14:53 O2 Sat by Pulse Oximetry (%) Laboratory Tests 06/14/17 06/15/17 06/15/17 23:00 07:00 07:00 WBC 5.4 RBC 4.65 Hgb 13.7 Hct 42.1 MCV 90.5 MCH 29.4 MCHC 32.5 RDW 14.5 Plt Count 185 MPV 9.6 Sodium Potassium Chloride Carbon Dioxide Anion Gap BUN Creatinine Creat Clearance w eGFR Random Glucose Calcium Total Bilirubin AST ALT Alkaline Phosphatase Total Protein Albumin Urine Color Yellow Urine Appearance Clear Urine pH 5.0 D Ur Specific [place] 1.029 Urine Protein Negative Urine Glucose (UA) Negative Urine Ketones Negative Urine Blood 2+ H Urine Nitrite Negative Urine Bilirubin Negative Urine Urobilinogen Negative Ur Leukocyte Esterase Negative Ur Epithelial Cells Rare Urine Mucus Rare RPR Titer HIV 1&2 Antibody Screen Negative HIV P24 Antigen Negative 06/15/17 06/15/17 07:00 07:00 WBC RBC Hgb Hct MCV MCH MCHC RDW Plt Count MPV Sodium 144 Potassium 3.6 Chloride 109 H Carbon Dioxide 27 Anion Gap 8 BUN 22 H D Creatinine 1.3 Creat Clearance w eGFR 57.97 Random Glucose 81 Calcium 8.6 Total Bilirubin 0.5 D AST 21 ALT 25 Alkaline Phosphatase 59 D Total Protein 6.3 L Albumin 3.4 Urine Color Urine Appearance Urine pH Ur Specific [place] Urine Protein Urine Glucose (UA) Urine Ketones Urine Blood Urine Nitrite Urine Bilirubin Urine Urobilinogen Ur Leukocyte Esterase Ur Epithelial Cells Urine Mucus RPR Titer Nonreactive HIV 1&2 Antibody Screen HIV P24 Antigen LABS NOTED. Assessment: 06/17/17 14:56 WITHDRAWAL SYMPTOMS. Plan: CONTINUE DETOX. INCREASE DAILY PO FLUID INTAKE.
[2017-06-17 17:07] VITALS: BP 128/77; PULSE 80; TEMP 98.7
--- NOTE | 2017-06-17 18:59 | PN ---
[facility] Progress Note Note: PATIENT WOULD LIKE TO BE DISCHARGED DUE TO FAMILY EMERGENCY,STABLE FOR DISCHARGE ,SEEN BY COUNSELOR
--- NOTE | 2017-06-17 19:03 | DS ---
[facility] Detox Discharge Summary Admission Date: 06/14/17 Discharge Date: 06/17/17 - History Present History: Alcohol Dependence, Cocaine Dependence Additional Comments: PATIENT IS STABLE FOR DISCHARGE,NO WITHDRAWAL SYMPTOM,DISCHARGE DUE TO FAMILY EMERGENCY, SEEN BY COUNSELOR,FOLLOW UP WITH AFTER CARE PROGRAM ARRANGEMENT Pertinent Past History: HYPERTENSION NICOTINE DEPENDENCE - Physical Exam Results Vital Signs: Vital Signs Temperature 98.7 F 06/17/17 17:06 Pulse Rate 80 06/17/17 17:06 Respiratory Rate 18 06/17/17 17:06 Blood Pressure 128/77 06/17/17 17:06 O2 Sat by Pulse Oximetry (%) - Treatment Hospital Course: Detoxed Safely, Responded well, Discharged Condition Good Patient has Accepted a Rehab Referral to: DECL[facility]ED - Medication Discharge Medications: Ambulatory Orders Amlodipine Besylate [Norvasc -] 10 mg PO DAILY #30 tablet 04/06/17 - AMA Did Patient Leave Against Medical Advice: No
[2017-06-17] MEDS ORDERED: chlordiazePOXIDE HCL 10 MG CAPSULE PO SCH (23:00)
== END 2017-06-17 19:23 | disposition home or self-care (01) | DRG 774 ==
LOC: YASAS 15:48 → Y3N 18:12
PROVIDERS: ADMIT Internal Medicine; ATTEND Internal Medicine
PROC: HZ2ZZZZ Detoxification Services for Substance Abuse Treatment (ICD-10-PCS; principal; 2017-06-14)
DX: F10.230 Alcohol dependence with withdrawal, uncomplicated (principal); F14.20 Cocaine dependence, uncomplicated; F17.210 Nicotine dependence, cigarettes, uncomplicated; I10 Essential (primary) hypertension
CPT/HCPCS: 36415; 80053; 81003; 81015; 85027; 86593; 87389; 93005; 93010

== ENCOUNTER 2019-05-18 19:23 | Emergency (ER) | payer OTHER ==
--- NOTE | 2019-05-18 20:16 | PDOC ---
History of Present Illness - General Stated Complaint: PENILE DISCHARGE Time Seen by Provider: 05/18/19 19:43 History Source: Patient - History of Present Illness Initial Comments: 05/18/19 20:13 54 yo M PMH of HTN (noncompliant with meds)presented to Ed from [facility]. Pt is interested in rehab for alcohol and cocaine. Patient also presents with 2-3 days penile discharge. He states that 4 days ago he had a new sexual partner who performed only oral sex, subsequently started having these symptoms. Patient also endorses dysuria. Pt endorses irritation and burning of his penis. Crack cocaine: Daily use, 5 bags per day. Route of use: inhalation. Last used today 1 bag. First started using at age 30. Longest sober period 3 years (2008- 2011). EtOH: 2 pints shirley daily. Last drink today, 32 oz. beer. Never had seizures d/t not drinking. Never lost consciousness d/t drinking. Longest sober period 10 yrs. Marijuana: 1 joint per day. Cigs: 6 per day x 15 years All: NKDA/ NKFA Meds: lisinopril, HCTZ--noncompliant 05/18/19 20:41 Past History - Past Medical History Allergies/Adverse Reactions: Allergies Allergy/AdvReac Type Severity Reaction Status Date / Time No Known Allergies Allergy Verified 05/18/19 20:23 Home Medications: Ambulatory Orders Lisinopril/Hydrochlorothiazide 20 mg PO DAILY 05/18/19 Anemia: No Asthma: No Cancer: No Cardiac Disorders: No CVA: No COPD: No CHF: No Dementia: No Diabetes: No GI Disorders: No Disorders: No HTN: Yes Hypercholesterolemia: No Kidney Stones: No Liver Disease: No Seizures: No Thyroid Disease: No - Surgical History Abdominal Surgery: No Appendectomy: No Cardiac Surgery: No Cholecystectomy: No Lung Surgery: No Neurologic Surgery: No Orthopedic Surgery: No - Reproductive History Testicular Surgery: No - Psycho Social/Smoking Cessation Hx Smoking History: Current every day smoker Have you smoked in the past 12 months: Yes Number of Cigarettes Smoked Daily: 6 Cigars Per Day: 0 'Breaking Loose' booklet given: 05/18/19 Hx Alcohol Use: Yes Drug/Substance Use Hx: Yes Substance Use Type: Alcohol, Cocaine Hx Substance Use Treatment: Yes (02/2017 [facility]) Review of Systems - Review of Systems Able to Perform ROS?: Yes Constitutional: No: Fever : Yes: Burning, Dysuria, Discharge, Pain *Physical Exam - Physical Exam General Appearance: Yes: Nourished HEENT: positive: Other (white, non raised lesion on tongue, unable to scrape. no tongue fasciculations ) Respiratory/Chest: positive: Lungs Clear, Normal Breath Sounds. negative: Accessory Muscle Use Cardiovascular: positive: Regular Rhythm, Regular Rate, S1, S2 Gastrointestinal/Abdominal: positive: Normal Bowel Sounds, Soft. negative: Tender, Distended Male Genitalia: positive: discharge Medical Decision Making - Medical Decision Making 05/18/19 20:46 54 yo M presented from [facility] for detox. pt came to [facility] 2/2 penile d/c and tx -pt has new sexual partner. and since then has penile D/c, burning, and dysuria. -GC testing -pt requests HIV testing. -UA, Ucx -empiric cefriaxone, azithro for GC/ CT -CIWA currently 0. Librium prn if pt starts withdrawing -counselled pt on alcohol and smoking cessation , pt advised to follow up with oral surgery for the tongue lesion. pt has had bx in past. advised that smoking and alcohol increase cancer risk - pt desires to complete rehab at [facility] 05/18/19 23:19 HIV resulted negative +UA -pending UCx Discharge - Discharge Information Problems reviewed: Yes Clinical Impression/Diagnosis: Cocaine dependence, Alcohol abuse Condition: Stable - Follow up/Referral Referrals: Jose Bernardo MD [Staff Physician] - - Patient Discharge Instructions Patient Printed Discharge Instructions: Facts About Sexually Transmitted Infections, How to Detect and Treat STDs Additional Instructions: Please go to [facility] for your alcohol and cocaine detox. Your STI testing cultures are still pending. You can call medical records for your results. You were treated for gonorrhea and chlamydia in the ED tonight. Any sexual partners need to be tested and treated for STDs. Your HIV test was negative. 05/18/19 1. As discussed, a screening test for the HIV virus was performed today. Your HIV test is Negative (normal). 2. As discussed, if you engaged in high risk-behavior in the three (3) months prior to this test, you could still potentially be at risk and you will need to be re-tested. 3. As discussed, avoid any high risk behavior (such as unprotected sex or needle-sharing) in the future to minimize the chances of keyona HIV. - Post Discharge Activity
[2019-05-18 20:23] VITALS: BMI 29.7
[2019-05-18] MEDS ORDERED: AZITHROMYCIN 500 MG TABLET PO ONE (20:39)
--- NOTE | 2019-05-18 20:47 | PDOC ---
Documentation entered by Viviana Cabrera SCRIBE, acting as scribe for Shirley Bob DO. Shirley Bob, DO: This documentation has been prepared by the Rick hernandez Adrianna, SCRIBE, under my direction and personally reviewed by me in its entirety. I confirm that the documentation accurately reflects all work, treatment, procedures, and medical decision making performed by me. Attending Attestation - Resident Resident Name: Rylee Juan - ED Attending Attestation I have performed the following: I have examined & evaluated the patient, The case was reviewed & discussed with the resident, I agree w/resident's findings & plan, Exceptions are as noted - HPI HPI: The patient is a 54 year old male, with a significant PMH of polysubstance abuse (EtOH, crack, cocaine, marijuana) and HTN (noncompliant with medications secondary to loss of insurance), who presents to the ED from [facility] for evaluation of penile discharge for 2 days. Patient notes he has been orally sexually active with a new partner 4 days ago, and developed white penile discharge 2 days after. He endorses associated dysuria that began today. Patient was negative for HIV testing 2 months ago. Patient additionally complains of a white lesion to the anterior aspect of his tongue. He notes he developed it a few months back, and biopsy testing was negative at this time. Patient reports that the lesion returned, and he associates it with smoking. Patient went to [facility] today requesting detox. He was last in detox 2 years ago, after using alcohol, crack, and cocaine for the past 20 years. Patient was clean up until 1 month ago, and his last time using was this morning. He denies any history of withdrawl or seizures. Allergies: NKA, NKDA Surgical History: None reported Social History: Polysubstance abuse. Current smoker. PCP: [facility] ([facility]) - Physicial Exam PE: Constitutional: Awake, alert, oriented. No acute distress. No hand tremors. Head: Normocephalic. Atraumatic Eyes: PERRL. EOMI. Conjunctivae are not pale. ENT: +White, nonpalpable lesion to the left anterior aspect of the tongue. No tongue fasciculations. Mucous membranes are moist and intact. Posterior pharynx without exudates or erythema. Uvula midline. Neck: Supple. Full ROM. No lymphadenopathy. Cardiovascular: Regular rate. Regular rhythm. S1, S2 regular. Distal pulses are 2+ and symmetric. Pulmonary/Chest: No evidence of respiratory distress. Clear to auscultation bilaterally No wheezing, rales or rhonchi. Abdominal: Soft and non-distended. There is no tenderness. No rebound, guarding or rigidity. No organomegaly. No palpable masses. Good bowel sounds. Pelvic: +White/clear discharge from the penis, which the patient is able to express under his foreskin (not circumsized). No other ulcers, lumps, bumps, or lesions. No inguinal lymphadenopathy. No scrotal tenderness or abnormal rashes. Back: No CVA tenderness. Musculoskeletal: No edema. No cyanosis. No clubbing. Full range of motion in all extremities. Nocalf tenderness. Radial/pedal pulses are intact and 2+ bilaterally Skin: Skin is warm and dry. No petechiae. No purpura. Neurological: Alert and oriented to person, place, and time. Cranial nerves II -XII are grossly intact. Normal speech. Strength is grossly symmetric. No sensory deficits. Psychiatric: Good eye contact. Normal interaction, affect and behavior. - Medical Decision Making 05/18/19 20:41 I, Dr. Shirley Bob, DO, attest that this document has been prepared under my direction and personally reviewed by me in its entirety. I further attest, that it accurately reflects all work, treatment, procedures and medical decision -making performed by me. a/p: 54yo male with hx of cocaine use (smokes) and etoh abuse who presented to [facility] for detox -also with penile discharge -also requesting detox from etoh and cocaine -seen at [facility] and sent for medical eval -pt with new recent oral sexual partners -hx of chlamydia -requesting HIV testing -will send ua, u chlam/gonorr, hiv -will treat with azithro/rocephin -will monitor and reassess -no etoh withdrawal at this time -hx of htn , noncomplaint -supposed to take lisinopril/hctz -lives in [place] 05/18/19 21:52 ua reactive from [facility]i no beds at [facility] tonight, will be available to go to [facility] in the am pt medically clear for [facility] currently not in withdrawal will continue to monitor pt sitting up, eating a sandwich in [place] 05/18/19 22:23 HIV neg 05/19/19 02:01 pt signed out pending DC to [facility] in the AM Discharge - Discharge Information Problems reviewed: Yes Clinical Impression/Diagnosis: Cocaine dependence, Alcohol abuse Condition: Stable - Admission No - Follow up/Referral Referrals: Jose Bernardo MD [Staff Physician] - - Patient Discharge Instructions Patient Printed Discharge Instructions: Facts About Sexually Transmitted Infections, How to Detect and Treat STDs Additional Instructions: Please go to [facility] for your alcohol and cocaine detox. Your STI testing cultures are still pending. You can call medical records for your results. You were treated for gonorrhea and chlamydia in the ED tonight. Any sexual partners need to be tested and treated for STDs. Your HIV test was negative. 05/18/19 1. As discussed, a screening test for the HIV virus was performed today. Your HIV test is Negative (normal). 2. As discussed, if you engaged in high risk-behavior in the three (3) months prior to this test, you could still potentially be at risk and you will need to be re-tested. 3. As discussed, avoid any high risk behavior (such as unprotected sex or needle-sharing) in the future to minimize the chances of keyona HIV. - Post Discharge Activity
[2019-05-18 21:33] LABS: EPI CELLS 2.1 /HPF (0-5/HPF); HYALINE CASTS 7 /lpf (0-8); PH,URINE 5.5 (5.0-8.0); URINE APPEARANCE CLEAR; URINE BACTERIA 2.6 /hpf (NEGATIVE); URINE BILIRUBIN NEGATIVE (NEGATIVE); URINE COLOR YELLOW; URINE GLUCOSE (UA) NEGATIVE (NEGATIVE); URINE KETONE TRACE (NEGATIVE); URINE LEUK ESTERASE 1+ (NEGATIVE); URINE NITRITE NEGATIVE (NEGATIVE); URINE PROTEIN NEGATIVE (NEGATIVE); URINE RBC 11 /hpf (0-4); URINE WBC 26 /hpf (0-5)
[2019-05-18] MEDS ORDERED: AZITHROMYCIN 500 MG TABLET ONE (21:38)
--- NOTE | 2019-05-19 00:17 | PDOC ---
*Physical Exam - Vital Signs Last Vital Signs Temp Pulse Resp BP Pulse Ox 97.9 F 89 18 159/104 H 100 05/18/19 20:00 05/18/19 20:00 05/18/19 20:00 05/18/19 20:00 05/18/19 20:00 ED Treatment Course - ADDITIONAL ORDERS Additional order review: Laboratory Results 05/18/19 21:15 Urine Color Yellow Urine Appearance Clear Urine pH 5.5 Ur Specific [place] 1.028 Urine Protein Negative Urine Glucose (UA) Negative Urine Ketones Trace H Urine Blood 2+ H Urine Nitrite Negative Urine Bilirubin Negative Urine Urobilinogen 1.0 Ur Leukocyte Esterase 1+ H Urine WBC (Auto) 26 Urine RBC (Auto) 11 Urine Casts (Auto) 7 U Epithel Cells (Auto) 2.1 Urine Bacteria (Auto) 2.6 - Medications Given in the ED: ED Medications Discontinued Medications Generic Name Dose Route Start Last Admin Trade Name Freq PRN Reason Stop Dose Admin Azithromycin 1,000 mg 05/18/19 20:39 05/18/19 21:44 Zithromax PO 05/18/19 20:40 1,000 mg ONCE ONE Administration Ceftriaxone Sodium 250 mg 05/18/19 20:38 05/18/19 21:44 Rocephin - IM 05/18/19 20:39 250 mg ONCE ONE Administration Medical Decision Making - Medical Decision Making 05/19/19 00:16 From [facility] sent for penile discharge returning to [facility] got antibiotics (ceftriaxone and azithromycin) has been accepted to [facility] Sending back to [facility] at 7 a.m Discharge - Discharge Information Clinical Impression/Diagnosis: Cocaine dependence, Alcohol abuse Condition: Stable - Follow up/Referral Referrals: Jose Bernardo MD [Staff Physician] - - Patient Discharge Instructions Patient Printed Discharge Instructions: Facts About Sexually Transmitted Infections, How to Detect and Treat STDs Additional Instructions: Please go to [facility] for your alcohol and cocaine detox. Your STI testing cultures are still pending. You can call medical records for your results. You were treated for gonorrhea and chlamydia in the ED tonight. Any sexual partners need to be tested and treated for STDs. Your HIV test was negative. 05/18/19 1. As discussed, a screening test for the HIV virus was performed today. Your HIV test is Negative (normal). 2. As discussed, if you engaged in high risk-behavior in the three (3) months prior to this test, you could still potentially be at risk and you will need to be re-tested. 3. As discussed, avoid any high risk behavior (such as unprotected sex or needle-sharing) in the future to minimize the chances of keyona HIV. - Post Discharge Activity
[2019-05-19 03:55] VITALS: TEMP 98.5
[2019-05-19 08:00] VITALS: BP 160/99; PULSE 82
== END 2019-05-19 08:01 | disposition home or self-care (01) ==
LOC: JER 19:23
DX: I10 Essential (primary) hypertension (principal); F14.20 Cocaine dependence, uncomplicated; F10.10 Alcohol abuse, uncomplicated; F12.10 Cannabis abuse, uncomplicated; F17.210 Nicotine dependence, cigarettes, uncomplicated
CPT/HCPCS: 36415; 81003; 87086; 87389; 87491; 87591; 99284-25

== ENCOUNTER 2019-05-19 09:13 | Inpatient (IN) | payer OTHER ==
[2019-05-19 09:30] VITALS: BMI 31.4
--- NOTE | 2019-05-19 10:07 | HP ---
COWS - Scale Resting Pulse: 1= AR 81-100 Sweatin= No chills or Flushing Restless Observation: 0= Sits Still Pupil Size: 0= Normal to Room Light Bone or Joint Aches: 0= None Runny Nose/ Eye Tearin= None GI Upset > 30mins: 0= None Tremor Observation: 0= None Yawning Observation: 0= None Anxiety or Irritability: 0= None Goose Flesh Skin: 0=Smooth Skin COWS Score: 1 CIWA Score Nausea/Vomitin-No Nausea/No Vomiting Muscle Tremors: None Anxiety: 0-No Anxiety, at Ease Agitation: 0-Normal Activity Paroxysmal Sweats: No Perspiration Orientation: 0-Oriented Tacttile Disturbances: 0-None Auditory Disturbances: 0-None Visual Disturbances: 0-None Headache: 1-Very Mild CIWA-Ar Total Score: 1 - Admission Criteria OASAS Guidelines: Admission for Medically Managed Detox: Requires at least one of the followin. CIWA greater than 12 2. Seizures within the past 24 hours 3. Delirium tremens within the past 24 hours 4. Hallucinations within the past 24 hours 5. Acute intervention needed for co occurring medical disorder 6. Acute intervention needed for co occurring psychiatric disorder 7. Severe withdrawal that cannot be handled at a lower level of care (continued vomiting, continued diarrhea, abnormal vital signs) requiring intravenous medication and/or fluids 8. Admitting History and Physical - Past Medical History Cardiovascular: Yes: HTN - Smoking History Smoking history: Current every day smoker Have you smoked in the past 12 months: Yes Aproximately how many cigarettes per day: 6 - Alcohol/Substance Use Hx Alcohol Use: Yes Date of Last Use: 05/18/19 Admission [facility] Chief Complaint: rehab, alcohol/cocaine Allergies/Adverse Reactions: Allergies Allergy/AdvReac Type Severity Reaction Status Date / Time No Known Allergies Allergy Verified 05/19/19 09:21 History of Present Illness: 54 year old male with hypertension here for rehab for alcohol/cocaine. Was here yesterday complaining of 2-3 days of penile discharge and was sent to hospital for evaluation. Tested (-) for HIV, GC/Chlamydia still pending. Crack Cocaine: 5 bags/day every day; smokes $300; last used yesterday; first started 30yo. longest sober period 3 years (09 - 12) Alcohol: 2 pints of shirley daily; last drink before coming to here yesterday. Never had withdrawal seizure Marijuana: 1 joint per day Cigs: 6 cigs/day for 15 years Surgical hx: none Social hx: homeless x 2-3 days. Previously lived in [place] in an apartment, lost the apartment d/t using drugs. Has a good friend and rastafarian support system. Not currently working. All: NKDA/ NKFA Meds: lisinopril, HCTZ -- hasnt taken in months - Ebola screening Have you traveled outside of the country in the last 21 days: No (N) Have you had contact with anyone from an Ebola affected area: No Do you have a fever: No Patient History - Patient Medical History Hx Anemia: No Hx Asthma: No Hx Chronic Obstructive Pulmonary Disease (COPD): No Hx Cancer: No Hx Cardiac Disorders: No Hx Congestive Heart Failure: No Hx Hypertension: Yes Hx Hypercholesterolemia: No Hx Pacemaker: No HX Cerebrovascular Accident: No Hx Seizures: No Hx Dementia: No Hx Diabetes: No Hx Gastrointestinal Disorders: No Hx Liver Disease: No Hx Genitourinary Disorders: No Hx Sexually Transmitted Disorders: No Hx Renal Disease (ESRD): No Hx Thyroid Disease: No Hx Human Immunodeficiency Virus (HIV): No Hx Hepatitis C: No Hx Depression: No Hx Suicide Attempt: No Hx Bipolar Disorder: No Hx Schizophrenia: No - Patient Surgical History Past Surgical History: No Hx Neurologic Surgery: No Hx Cataract Extraction: No Hx Cardiac Surgery: No Hx Lung Surgery: No Hx Breast Surgery: No Hx Breast Biopsy: No Hx Abdominal Surgery: No Hx Appendectomy: No Hx Cholecystectomy: No Hx Genitourinary Surgery: No Hx Section: No Hx Orthopedic Surgery: No Anesthesia Reaction: No - PPD History Date: 04/05/17 Results: 0mm - Smoking Cessation Smoking history: Current every day smoker Have you smoked in the past 12 months: Yes Aproximately how many cigarettes per day: 6 Cigars Per Day: 0 Hx Chewing Tobacco Use: No Initiated information on smoking cessation: Yes 'Breaking Loose' booklet given: 05/19/19 - Substances abused Alcohol Substance route: Oral Frequency: Daily Amount used: 1 pint of [place] Age of first use: 30 Date of last use: 05/18/19 Crack Substance route: Smoking Frequency: Daily Amount used: $300 Age of first use: 30 Date of last use: 05/18/19 Admission Physical Exam [facility] - Vital Signs Vital Signs: Vital Signs - 24 hr 05/19/19 09:14 Temperature 97.3 F L Pulse Rate 83 Respiratory 17 Rate Blood Pressure 163/113 H - Physical General Appearance: Yes: No Apparent Distress HEENTM: Yes: Within Normal Limits Respiratory: Yes: Chest Non-Tender, Lungs Clear Breast: Yes: Within Normal Limits Cardiology: Yes: Regular Rhythm, Regular Rate Abdominal: Yes: Non Tender, Flat, Soft Back: Yes: Within Normal Limits Musculoskeletal: Yes: Within Normal Limits Extremities: Yes: Within Normal Limits 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 NML intact, Fully Oriented, Alert, Motor Strength 5/5, Normal Mood/Affect Integumentary: Yes: Dry, Warm - Diagnostic (1) Alcohol abuse Current Visit: No Status: Acute (2) Cocaine dependence Current Visit: No Status: Acute Cleared for Admission [facility] - Detox or Rehab [facility] Level of Care: Medically Managed Breathalyzer - Breathalyzer Breathalyzer: 0 Urine Drug Screen - Test Device Lot number: [id number] Expiration date: 12/23/20 - Control Is test valid?: Yes - Results Drug screen NEGATIVE: No Urine drug screen results: FEN-Fentanyl, MOP-Opiates, OXY-Oxycodone Inpatient Rehab Admission - Rehab Decision to Admit Inpatient rehab admission?: Yes - Initial Determination Are CD services needed?: Yes Free of communicable disease: Yes Not in need of hospitalization: Yes - Rehab Admission Criteria Previous failed treatment: Yes Poor recovery environment: No Comorbidities: No Lacks judgement: Yes Patient is meeting Inpatient Rehab admission criteria:: Yes
[2019-05-19] MEDS ORDERED: MAGNESIUM HYDROX 2400MG/30ML ORAL SUSPENSION 30 ML CUP PO PRN (10:18)
[2019-05-19] MEDS ORDERED: MAGNESIUM CITRATE 300 ML BOTTLE PO PRN (10:18)
[2019-05-19] MEDS ORDERED: LOPERAMIDE HCL 2 MG CAPSULE PO PRN (10:18)
[2019-05-19] MEDS ORDERED: guaiFENesin 200 MG/10 ML 10 ML UNIT-DOSE CUPS PO PRN (10:18)
[2019-05-19] MEDS ORDERED: P-EPHED 60MG/TRIPROLIDI 2.5MG TABLET PO PRN (10:18)
[2019-05-19] MEDS ORDERED: MENTHOL/PHENOL 1 EACH UD MM PRN (10:18)
[2019-05-19] MEDS ORDERED: ACETAMINOPHEN 325 MG TABLET (FP) PO PRN (10:18)
--- NOTE | 2019-05-19 10:22 | PN ---
Teaching Attending Note Name of Resident: Sharan Richardson ATTENDING PHYSICIAN STATEMENT I saw and evaluated the patient. I reviewed the resident's note and discussed the case with the resident. I agree with the resident's findings and plan as documented. SUBJECTIVE: 54 y.o. male pt here for cocaine and alcohol use , reports 300 $/ day via inhalation , etoh : claims 2 pints/day, beer 32 oz /day , denies seizures,tremors , returned from hospital s/p tx , denies other complaints . Tested (-) for HIV, GC/Chlamydia still pending. cannabis : 1 x/day tobacco : / ppd x 15 years Social hx: homeless x 2-3 days. Previously lived in [facility] apartment 2/2 using drugs. Admits to non- compliance w/ meds i.e lisinopril, HCTZ for several months OBJECTIVE: wnwd , CIwa-1 Vital Signs - 24 hr 05/19/19 09:14 Temperature 97.3 F L Pulse Rate 83 Respiratory 17 Rate Blood Pressure 163/113 H ASSESSMENT AND PLAN: Cocaine and alcohol use disorder - rehab . encouraged f/ up w/ PCP re : HTN .
[2019-05-19 12:14] LABS: HEMATOCRIT 42.2 % (35.4-49); HEMOGLOBIN 13.9 GM/dL (11.7-16.9); MCH 29.7 pg (25.7-33.7); MCHC 32.9 g/dl (32.0-35.9); MEAN CELL VOLUME 90.3 fl (80-96); MEAN PLT VOLUME 9.5 fl (7.5-11.1); PLATELET COUNT 222 K/MM3 (134-434); RBC 4.68 M/mm3 (4.00-5.60); RDW 15.5 % (11.9-15.9); WHITE BLOOD COUNT 6.8 K/mm3 (4.0-10.0)
[2019-05-19] MEDS ORDERED: FLU VACCINE QUAD 60 MCG/0.5 ML (MDV 19-20) IM ONE (12:14)
[2019-05-19] MEDS: LOSARTAN POTASSIUM 50 MG TABLET (FP) PO SCH (12:18)
[2019-05-19] MEDS: NICOTINE 7 MG/24 HOURS TOPICAL PATCH TD SCH (12:18)
[2019-05-19 12:30] LABS: ALBUMIN 3.5 g/dl (3.4-5.0); BILIRUBIN,TOTAL 0.7 mg/dL (0.2-1); BLOOD UREA NITROGEN 17.8 mg/dL (7-18); CALCIUM 8.6 mg/dL (8.5-10.1); CREATININE 1.4 mg/dL (0.55-1.3); POTASSIUM 3.8 mmol/L (3.5-5.1); TOT PROT 6.7 g/dl (6.4-8.2)
[2019-05-19] MEDS: THIAMINE HCL 100 MG TABLET (FP) PO SCH (21:55)
[2019-05-19] MEDS: MELATONIN 5 MG TABLETS PO PRN (23:01)
[2019-05-20] MEDS ORDERED: cloNIDine HCL 0.1 MG TABLET PO ONE (07:28)
--- NOTE | 2019-05-20 07:31 | PN ---
[facility] Progress Note Note: Patient's blood pressure is B/P 157/114. Patient is asymptomatic Vital Signs Temperature 98 F 05/20/19 07:26 Pulse Rate 83 05/20/19 07:26 Respiratory Rate 18 05/20/19 07:26 Blood Pressure 157/114 H 05/20/19 07:26 O2 Sat by Pulse Oximetry (%) Action: Clonidine 0.1mg tablet oral ordered
[2019-05-20] MEDS: LOSARTAN POTASSIUM 50 MG TABLET (FP) PO SCH (10:29)
[2019-05-20] MEDS: NICOTINE 7 MG/24 HOURS TOPICAL PATCH TD SCH (10:30)
[2019-05-20] MEDS: PRENATAL VITAMINS W/ FOLIC ACID TABLET (FP) PO SCH (10:30)
[2019-05-20] MEDS: THIAMINE HCL 100 MG TABLET (FP) PO SCH (22:18)
[2019-05-20] MEDS: MELATONIN 5 MG TABLETS PO PRN (22:19)
[2019-05-21] MEDS: PRENATAL VITAMINS W/ FOLIC ACID TABLET (FP) PO SCH (10:30)
[2019-05-21] MEDS: NICOTINE 7 MG/24 HOURS TOPICAL PATCH TD SCH (10:30)
[2019-05-21] MEDS: LOSARTAN POTASSIUM 50 MG TABLET (FP) PO SCH (10:31)
[2019-05-21 18:46] LABS: EPI CELLS 0.5 /HPF (0-5/HPF); HYALINE CASTS 4 /lpf (0-8); PH,URINE 5.5 (5.0-8.0); URINE APPEARANCE TURBID; URINE BACTERIA 0.7 /hpf (NEGATIVE); URINE BILIRUBIN NEGATIVE (NEGATIVE); URINE COLOR YELLOW; URINE GLUCOSE (UA) NEGATIVE (NEGATIVE); URINE KETONE TRACE (NEGATIVE); URINE LEUK ESTERASE NEGATIVE (NEGATIVE); URINE NITRITE NEGATIVE (NEGATIVE); URINE PROTEIN NEGATIVE (NEGATIVE); URINE RBC 2 /hpf (0-4); URINE WBC 2 /hpf (0-5)
[2019-05-21] MEDS: THIAMINE HCL 100 MG TABLET (FP) PO SCH (21:38)
[2019-05-22] MEDS: IBUPROFEN 400 MG TABLET (FP) PO PRN (01:25)
[2019-05-22] MEDS: LOSARTAN POTASSIUM 50 MG TABLET (FP) PO SCH (11:24)
[2019-05-22] MEDS: NICOTINE 7 MG/24 HOURS TOPICAL PATCH TD SCH (11:25)
[2019-05-22] MEDS: PRENATAL VITAMINS W/ FOLIC ACID TABLET (FP) PO SCH (11:25)
[2019-05-22] MEDS: THIAMINE HCL 100 MG TABLET (FP) PO SCH (21:45)
[2019-05-23] MEDS: NICOTINE 7 MG/24 HOURS TOPICAL PATCH TD SCH (10:32)
[2019-05-23] MEDS: LOSARTAN POTASSIUM 50 MG TABLET (FP) PO SCH (10:35)
[2019-05-23] MEDS: PRENATAL VITAMINS W/ FOLIC ACID TABLET (FP) PO SCH (10:36)
[2019-05-23 11:02] LABS: PH,URINE 6.5 (5.0-8.0); URINE APPEARANCE CLEAR; URINE BILIRUBIN NEGATIVE (NEGATIVE); URINE COLOR YELLOW; URINE GLUCOSE (UA) NEGATIVE (NEGATIVE); URINE KETONE NEGATIVE (NEGATIVE); URINE LEUK ESTERASE NEGATIVE (NEGATIVE); URINE NITRITE NEGATIVE (NEGATIVE); URINE PROTEIN NEGATIVE (NEGATIVE); URINE UROBILINOGEN 0.2 mg/dL (0.2-1.0)
[2019-05-23 13:45] LABS: EPI CELLS 0.8 /HPF (0-5/HPF); HYALINE CASTS 1.86 /lpf (0-8); URINE BACTERIA 6.9 /hpf (NEGATIVE); URINE RBC 17 /hpf (0-4); URINE WBC 0.7 /hpf (0-5)
[2019-05-23] MEDS: THIAMINE HCL 100 MG TABLET (FP) PO SCH (21:25)
[2019-05-23] MEDS: MELATONIN 5 MG TABLETS PO PRN (21:25)
[2019-05-24] MEDS: LOSARTAN POTASSIUM 50 MG TABLET (FP) PO SCH (10:25)
[2019-05-24] MEDS: PRENATAL VITAMINS W/ FOLIC ACID TABLET (FP) PO SCH (10:25)
[2019-05-24] MEDS: NICOTINE 7 MG/24 HOURS TOPICAL PATCH TD SCH (10:25)
[2019-05-24] MEDS: THIAMINE HCL 100 MG TABLET (FP) PO SCH (21:25)
[2019-05-24] MEDS: MELATONIN 5 MG TABLETS PO PRN (21:25)
[2019-05-25] MEDS: NICOTINE 7 MG/24 HOURS TOPICAL PATCH TD SCH (10:51)
[2019-05-25] MEDS: LOSARTAN POTASSIUM 50 MG TABLET (FP) PO SCH (10:51)
[2019-05-25] MEDS: PRENATAL VITAMINS W/ FOLIC ACID TABLET (FP) PO SCH (10:51)
[2019-05-25] MEDS: THIAMINE HCL 100 MG TABLET (FP) PO SCH (22:00)
[2019-05-26] MEDS: NICOTINE 7 MG/24 HOURS TOPICAL PATCH TD SCH (09:50)
[2019-05-26] MEDS: PRENATAL VITAMINS W/ FOLIC ACID TABLET (FP) PO SCH (09:51)
[2019-05-26] MEDS: IBUPROFEN 400 MG TABLET (FP) PO PRN (09:51)
[2019-05-26] MEDS: LOSARTAN POTASSIUM 50 MG TABLET (FP) PO SCH (09:51)
[2019-05-26] MEDS: THIAMINE HCL 100 MG TABLET (FP) PO SCH (21:21)
[2019-05-26] MEDS: MELATONIN 5 MG TABLETS PO PRN (21:21)
[2019-05-27] MEDS: NICOTINE 7 MG/24 HOURS TOPICAL PATCH TD SCH (09:47)
[2019-05-27] MEDS: PRENATAL VITAMINS W/ FOLIC ACID TABLET (FP) PO SCH (09:47)
[2019-05-27] MEDS: LOSARTAN POTASSIUM 50 MG TABLET (FP) PO SCH (09:47)
[2019-05-27] MEDS: IBUPROFEN 400 MG TABLET (FP) PO PRN (13:15)
[2019-05-27] MEDS: MELATONIN 5 MG TABLETS PO PRN (21:11)
[2019-05-27] MEDS: THIAMINE HCL 100 MG TABLET (FP) PO SCH (21:11)
[2019-05-28] MEDS: LOSARTAN POTASSIUM 50 MG TABLET (FP) PO SCH (10:15)
[2019-05-28] MEDS: PRENATAL VITAMINS W/ FOLIC ACID TABLET (FP) PO SCH (10:16)
[2019-05-28] MEDS: IBUPROFEN 400 MG TABLET (FP) PO PRN (10:16)
[2019-05-28] MEDS: NICOTINE 7 MG/24 HOURS TOPICAL PATCH TD SCH (10:23)
[2019-05-28] MEDS: THIAMINE HCL 100 MG TABLET (FP) PO SCH (21:43)
[2019-05-29] MEDS: MAG HYDROX/AL HYDROX/SIMETH 30 ML UNIT-DOSE CUP PO PRN ×2 (08:52→16:08)
[2019-05-29] MEDS: LOSARTAN POTASSIUM 50 MG TABLET (FP) PO SCH (10:28)
[2019-05-29] MEDS: PRENATAL VITAMINS W/ FOLIC ACID TABLET (FP) PO SCH (10:28)
[2019-05-29] MEDS: NICOTINE 7 MG/24 HOURS TOPICAL PATCH TD SCH (10:29)
[2019-05-29] MEDS: IBUPROFEN 400 MG TABLET (FP) PO PRN (17:29)
[2019-05-29] MEDS: THIAMINE HCL 100 MG TABLET (FP) PO SCH (22:12)
[2019-05-30] MEDS: NICOTINE 7 MG/24 HOURS TOPICAL PATCH TD SCH (10:24)
[2019-05-30] MEDS: LOSARTAN POTASSIUM 50 MG TABLET (FP) PO SCH (10:24)
[2019-05-30] MEDS: PRENATAL VITAMINS W/ FOLIC ACID TABLET (FP) PO SCH (10:24)
[2019-05-30] MEDS: THIAMINE HCL 100 MG TABLET (FP) PO SCH (21:27)
[2019-05-30] MEDS: MELATONIN 5 MG TABLETS PO PRN (21:27)
[2019-05-31] MEDS: NICOTINE 7 MG/24 HOURS TOPICAL PATCH TD SCH (10:09)
[2019-05-31] MEDS: PRENATAL VITAMINS W/ FOLIC ACID TABLET (FP) PO SCH (10:09)
[2019-05-31] MEDS: LOSARTAN POTASSIUM 50 MG TABLET (FP) PO SCH (10:09)
[2019-05-31] MEDS: MELATONIN 5 MG TABLETS PO PRN (21:05)
[2019-05-31] MEDS: THIAMINE HCL 100 MG TABLET (FP) PO SCH (21:05)
[2019-06-01] MEDS: LOSARTAN POTASSIUM 50 MG TABLET (FP) PO SCH (10:15)
[2019-06-01] MEDS: PRENATAL VITAMINS W/ FOLIC ACID TABLET (FP) PO SCH (10:15)
[2019-06-01] MEDS: NICOTINE 7 MG/24 HOURS TOPICAL PATCH TD SCH (10:16)
--- NOTE | 2019-06-01 13:01 | PN ---
[facility] Progress Note Note: Vital Signs Temperature 97.7 F 06/01/19 07:11 Pulse Rate 104 H 06/01/19 09:30 Respiratory Rate 18 06/01/19 09:30 Blood Pressure 157/103 H 06/01/19 09:30 O2 Sat by Pulse Oximetry (%) Laboratory Last Values WBC 6.8 K/mm3 (4.0-10.0) 05/19/19 10:35 RBC 4.68 M/mm3 (4.00-5.60) 05/19/19 10:35 Hgb 13.9 GM/dL (11.7-16.9) 05/19/19 10:35 Hct 42.2 % (35.4-49) 05/19/19 10:35 MCV 90.3 fl (80-96) 05/19/19 10:35 MCH 29.7 pg (25.7-33.7) 05/19/19 10:35 MCHC 32.9 g/dl (32.0-35.9) 05/19/19 10:35 RDW 15.5 % (11.9-15.9) 05/19/19 10:35 Plt Count 222 K/MM3 (134-434) 05/19/19 10:35 MPV 9.5 fl (7.5-11.1) 05/19/19 10:35 Sodium 144 mmol/L (136-145) 05/19/19 10:35 Potassium 3.8 mmol/L (3.5-5.1) 05/19/19 10:35 Chloride 108 mmol/L (98-107) H 05/19/19 10:35 Carbon Dioxide 31 mmol/L (21-32) 05/19/19 10:35 Anion Gap 5 MMOL/L (8-16) L 05/19/19 10:35 BUN 17.8 mg/dL (7-18) 05/19/19 10:35 Creatinine 1.4 mg/dL (0.55-1.3) H 05/19/19 10:35 Est GFR (CKD-EPI)AfAm 65.55 05/19/19 10:35 Est GFR (CKD-EPI)NonAf 56.56 05/19/19 10:35 Random Glucose 80 mg/dL (74-106) 05/19/19 10:35 Calcium 8.6 mg/dL (8.5-10.1) 05/19/19 10:35 Total Bilirubin 0.7 mg/dL (0.2-1) 05/19/19 10:35 AST 29 U/L (15-37) 05/19/19 10:35 ALT 31 U/L (13-61) 05/19/19 10:35 Alkaline Phosphatase 71 U/L (45-117) 05/19/19 10:35 Total Protein 6.7 g/dl (6.4-8.2) 05/19/19 10:35 Albumin 3.5 g/dl (3.4-5.0) 05/19/19 10:35 Urine Color Yellow 05/23/19 08:15 Urine Appearance Clear 05/23/19 08:15 Urine pH 6.5 (5.0-8.0) 05/23/19 08:15 Ur Specific [place] 1.016 (1.010-1.035) 05/23/19 08:15 Urine Protein Negative (NEGATIVE) 05/23/19 08:15 Urine Glucose (UA) Negative (NEGATIVE) 05/23/19 08:15 Urine Ketones Negative (NEGATIVE) 05/23/19 08:15 Urine Blood 1+ (NEGATIVE) H 05/23/19 08:15 Urine Nitrite Negative (NEGATIVE) 05/23/19 08:15 Urine Bilirubin Negative (NEGATIVE) 05/23/19 08:15 Urine Urobilinogen 0.2 mg/dL (0.2-1.0) 05/23/19 08:15 Ur Leukocyte Esterase Negative (NEGATIVE) 05/23/19 08:15 Urine WBC (Auto) 0.7 /hpf (0-5) 05/23/19 08:15 Urine RBC (Auto) 17 /hpf (0-4) 05/23/19 08:15 Urine Casts (Auto) 1.86 /lpf (0-8) 05/23/19 08:15 U Epithel Cells (Auto) 0.8 /HPF (0-5/HPF) 05/23/19 08:15 Urine Bacteria (Auto) 6.9 /hpf (NEGATIVE) 05/23/19 08:15 RPR Titer Nonreactive (NONREACTIVE) 05/19/19 10:35 Labs reviewed continue to monitor follow up with PCP upon discharge
[2019-06-01] MEDS: MELATONIN 5 MG TABLETS PO PRN (21:41)
[2019-06-01] MEDS: THIAMINE HCL 100 MG TABLET (FP) PO SCH (21:41)
[2019-06-01] MEDS: MAG HYDROX/AL HYDROX/SIMETH 30 ML UNIT-DOSE CUP PO PRN (21:41)
[2019-06-02] MEDS: NICOTINE 7 MG/24 HOURS TOPICAL PATCH TD SCH (10:58)
[2019-06-02] MEDS: PRENATAL VITAMINS W/ FOLIC ACID TABLET (FP) PO SCH (10:58)
[2019-06-02] MEDS: LOSARTAN POTASSIUM 50 MG TABLET (FP) PO SCH (10:58)
[2019-06-02] MEDS: IBUPROFEN 400 MG TABLET (FP) PO PRN (15:40)
[2019-06-02] MEDS: THIAMINE HCL 100 MG TABLET (FP) PO SCH (21:07)
[2019-06-03] MEDS: NICOTINE 7 MG/24 HOURS TOPICAL PATCH TD SCH (11:07)
[2019-06-03] MEDS: LOSARTAN POTASSIUM 50 MG TABLET (FP) PO SCH (11:07)
[2019-06-03] MEDS: PRENATAL VITAMINS W/ FOLIC ACID TABLET (FP) PO SCH (11:07)
[2019-06-03] MEDS: THIAMINE HCL 100 MG TABLET (FP) PO SCH (22:14)
[2019-06-04] MEDS: PRENATAL VITAMINS W/ FOLIC ACID TABLET (FP) PO SCH (09:52)
[2019-06-04] MEDS: LOSARTAN POTASSIUM 50 MG TABLET (FP) PO SCH (09:52)
[2019-06-04] MEDS: NICOTINE 7 MG/24 HOURS TOPICAL PATCH TD SCH (09:53)
[2019-06-04] MEDS: IBUPROFEN 400 MG TABLET (FP) PO PRN (15:06)
[2019-06-04] MEDS: THIAMINE HCL 100 MG TABLET (FP) PO SCH (22:01)
[2019-06-05] MEDS: PRENATAL VITAMINS W/ FOLIC ACID TABLET (FP) PO SCH (10:28)
[2019-06-05] MEDS: LOSARTAN POTASSIUM 50 MG TABLET (FP) PO SCH (10:28)
[2019-06-05] MEDS: NICOTINE 7 MG/24 HOURS TOPICAL PATCH TD SCH (10:29)
[2019-06-05] MEDS: OMEGA-3 ACID ETHYL ESTERS (FATTY-ACIDS) 1 GM CAPSULE (FP) PO SCH ×2 (10:29→22:41)
[2019-06-05] MEDS ORDERED: cloNIDine HCL 0.1 MG TABLET PO PRN (14:16)
[2019-06-05] MEDS: THIAMINE HCL 100 MG TABLET (FP) PO SCH (22:41)
[2019-06-06] MEDS: LOSARTAN POTASSIUM 50 MG TABLET (FP) PO SCH (09:44)
[2019-06-06] MEDS: PRENATAL VITAMINS W/ FOLIC ACID TABLET (FP) PO SCH (09:44)
[2019-06-06] MEDS: OMEGA-3 ACID ETHYL ESTERS (FATTY-ACIDS) 1 GM CAPSULE (FP) PO SCH ×2 (09:44→22:28)
[2019-06-06] MEDS: NICOTINE 7 MG/24 HOURS TOPICAL PATCH TD SCH (09:45)
[2019-06-06] MEDS: HYDROCHLOROTHIAZIDE 12.5 MG CAPSULE (FP) PO SCH (12:58)
[2019-06-06] MEDS: THIAMINE HCL 100 MG TABLET (FP) PO SCH (22:28)
[2019-06-07] MEDS: HYDROCHLOROTHIAZIDE 12.5 MG CAPSULE (FP) PO SCH (10:20)
[2019-06-07] MEDS: LOSARTAN POTASSIUM 50 MG TABLET (FP) PO SCH (10:20)
[2019-06-07] MEDS ORDERED: PT OWN MED DRAWER 7, Y5N ONE ×2 (10:22)
[2019-06-07] MEDS: OMEGA-3 ACID ETHYL ESTERS (FATTY-ACIDS) 1 GM CAPSULE (FP) PO SCH ×2 (10:22→21:51)
[2019-06-07] MEDS: PRENATAL VITAMINS W/ FOLIC ACID TABLET (FP) PO SCH (10:23)
[2019-06-07] MEDS: NICOTINE 7 MG/24 HOURS TOPICAL PATCH TD SCH (10:23)
[2019-06-07] MEDS: IBUPROFEN 400 MG TABLET (FP) PO PRN (14:02)
[2019-06-07] MEDS: THIAMINE HCL 100 MG TABLET (FP) PO SCH (21:51)
[2019-06-08] MEDS ORDERED: PT OWN MED DRAWER 7, Y5N ONE (08:48)
[2019-06-08] MEDS: OMEGA-3 ACID ETHYL ESTERS (FATTY-ACIDS) 1 GM CAPSULE (FP) PO SCH ×2 (10:01→22:02)
[2019-06-08] MEDS: PRENATAL VITAMINS W/ FOLIC ACID TABLET (FP) PO SCH (10:01)
[2019-06-08] MEDS: LOSARTAN POTASSIUM 50 MG TABLET (FP) PO SCH (10:01)
[2019-06-08] MEDS: HYDROCHLOROTHIAZIDE 12.5 MG CAPSULE (FP) PO SCH (10:01)
[2019-06-08] MEDS: NICOTINE 7 MG/24 HOURS TOPICAL PATCH TD SCH (10:02)
--- NOTE | 2019-06-08 15:12 | PN ---
S Progress Note (SOAP) Subjective: patient to be discharged tomorrow, June 09, PMHx: SUBJECTIVE: 54 y.o. male pt with cocaine and alcohol use , reports 300 $/day via inhalation , etoh : claims 2 pints/day, beer 32 oz /day , denies seizures, tremors , Tested (-) for HIV, cannabis : 1 x/day tobacco : 1/4 ppd x 15 years Social hx: homeless x 2-3 days. Previously lived in [facility] apartment 2/2 using drugs. Admits to non- compliance w/ meds i.e lisinopril, HCTZ for several months HOSPITAL COURSE: patient attended groups, had 1:1 meetings with his counselor; was adherent to his treatment plan and medication regimen. He had not acute or urgent medical problems while in rehab. 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 06/08/19 15:14 Plan: Patient will go back to work and 12 step program. prescription for lisinopril/ HCTZ sent to pharmacy.
[2019-06-08] MEDS: THIAMINE HCL 100 MG TABLET (FP) PO SCH (22:02)
[2019-06-09 07:05] VITALS: BP 143/80; PULSE 106; TEMP 98.5
--- NOTE | 2019-06-09 13:33 | DS ---
[facility] Rehab Discharge Summary - [facility] Rehab Discharge Summary Admission Date: 05/19/19 Discharge Date: 06/09/19 - History Present History: Alcohol dependence, Cocaine dependence - Discharge Physical Exam Vital Signs: Vital Signs Temperature 98.5 F 06/09/19 07:04 Pulse Rate 106 H 06/09/19 07:04 Respiratory Rate 20 06/09/19 07:04 Blood Pressure 143/80 06/09/19 07:04 O2 Sat by Pulse Oximetry (%) - Medication Discharge Medications: Ambulatory Orders Lisinopril/Hydrochlorothiazide 20 mg PO DAILY 05/18/19 Lisinopril/Hydrochlorothiazide [Lisinopril-Hctz 10-12.5 mg Tab] 1 each PO DAILY #30 tablet 06/08/19 - Medication-Assisted Treatment (MAT) Medication-Assisted Treatment (MAT): No MAT Follow-up Referral: 12 step program - Discharge Instructions Diet, activity, other medical instructions: Diet: Activity: Other medical instructions: - AMA Did Patient Leave Against Medical Advice: No Additional Comments: Patient left prior to provider evaluation.
== END 2019-06-09 08:55 | disposition home or self-care (01) | DRG 772 ==
LOC: YASAS 09:13 → Y3W 10:24
PROVIDERS: ADMIT Neuromusculoskeletal Medicine & OMM; ATTEND Neuromusculoskeletal Medicine & OMM
PROC: HZ42ZZZ Group Counseling for Substance Abuse Treatment, Cognitive-Behavioral (ICD-10-PCS; principal; 2019-05-19)
DX: F11.20 Opioid dependence, uncomplicated (principal); F14.20 Cocaine dependence, uncomplicated; F12.10 Cannabis abuse, uncomplicated; F17.210 Nicotine dependence, cigarettes, uncomplicated; I10 Essential (primary) hypertension; R36.9 Urethral discharge, unspecified; Z91.14 Patient's other noncompliance with medication regimen; Z59.0 Homelessness
CPT/HCPCS: 36415; 80053; 81003; 85027; 86593; G0008; J0735; Q2036

== ENCOUNTER 2019-07-03 11:21 | Inpatient (IN) | payer BC ==
[2019-07-03 11:50] VITALS: BMI 30.9
--- NOTE | 2019-07-03 12:34 | HP ---
CIWA Score Nausea/Vomitin-Mild Nausea/No Vomiting Muscle Tremors: 4-Moderate,w/Arms Extend Anxiety: 1-Mildly Anxious Agitation: 2 Paroxysmal Sweats: No Perspiration Orientation: 0-Oriented Tacttile Disturbances: 2-Mild Itch/Numbness/Burn Auditory Disturbances: 0-None Visual Disturbances: 0-None Headache: 0-None Present CIWA-Ar Total Score: 10 - Admission Criteria OASAS Guidelines: Admission for Medically Managed Detox: Requires at least one of the followin. CIWA greater than 12 2. Seizures within the past 24 hours 3. Delirium tremens within the past 24 hours 4. Hallucinations within the past 24 hours 5. Acute intervention needed for co occurring medical disorder 6. Acute intervention needed for co occurring psychiatric disorder 7. Severe withdrawal that cannot be handled at a lower level of care (continued vomiting, continued diarrhea, abnormal vital signs) requiring intravenous medication and/or fluids 8. Admitting History and Physical - Admission Chief Complaint: "I'm here so I can get off of alcohol, crack/cocaine and benzodiazepines." History of Present Illness: 54 year old black male with history of alcohol dependence, and cocaine use disorder. He is drinking up to 1 pint of vodka daily, last drank this morning very early 4 am. He is using cocaine/crack about %20-100 daily, last used this am. He uses marijuana once weekly. He denies using benzodiazepines but he believe that the cocaine is being laced with it. He stated he did not complete detox because of the counselor on the floor. PMH: HTN Psurg: None History Source: Patient Limitations to Obtaining History: No Limitations - Past Medical History Cardiovascular: Yes: HTN - Past Surgical History Past Surgical History: Yes: None - Smoking History Smoking history: Current every day smoker Have you smoked in the past 12 months: Yes Aproximately how many cigarettes per day: 6 - Alcohol/Substance Use Hx Alcohol Use: Yes (1-2 pints daily) History of Substance Use: reports: Cocaine Date of Last Use: 07/03/19 - Social History Usual Living Arrangement: Yes: Alone Do you think of yourself as: Straight/Heterosexual ADL: Independent 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 History of Recent Travel: No Admission ROS S - HPI Allergies/Adverse Reactions: Allergies Allergy/AdvReac Type Severity Reaction Status Date / Time No Known Allergies Allergy Verified 07/03/19 11:44 - Ebola screening Have you traveled outside of the country in the last 21 days: No Have you had contact with anyone from an Ebola affected area: No Have you been sick,other than usual withdrawal symptoms: No Do you have a fever: No - Review of Systems Constitutional: Chills, Diaphoresis EENT: reports: No Symptoms Reported Respiratory: reports: No Symptoms reported Cardiac: reports: No Symptoms Reported GI: reports: No Symptoms Reported, Nausea, Abdominal cramping : reports: No Symptoms Reported Musculoskeletal: reports: Back Pain Integumentary: reports: No Symptoms Reported Endocrine: reports: No Symptoms Reported Hematology: reports: No Symptoms Reported Psychiatric: reports: Judgement Intact, Mood/Affect Appropiate, Orientated x3 Other Systems: Reviewed and Negative Patient History - Patient Medical History Hx Anemia: No Hx Asthma: No Hx Chronic Obstructive Pulmonary Disease (COPD): No Hx Cancer: No Hx Cardiac Disorders: No Hx Congestive Heart Failure: No Hx Hypertension: Yes Hx Hypercholesterolemia: No Hx Pacemaker: No HX Cerebrovascular Accident: No Hx Seizures: No Hx Dementia: No Hx Diabetes: No Hx Gastrointestinal Disorders: No Hx Liver Disease: No Hx Genitourinary Disorders: No Hx Sexually Transmitted Disorders: No Hx Renal Disease (ESRD): No Hx Thyroid Disease: No Hx Human Immunodeficiency Virus (HIV): No Hx Hepatitis C: No Hx Depression: No Hx Suicide Attempt: No Hx Bipolar Disorder: No Hx Schizophrenia: No - Patient Surgical History Past Surgical History: No Hx Neurologic Surgery: No Hx Cataract Extraction: No Hx Cardiac Surgery: No Hx Lung Surgery: No Hx Breast Surgery: No Hx Breast Biopsy: No Hx Abdominal Surgery: No Hx Appendectomy: No Hx Cholecystectomy: No Hx Genitourinary Surgery: No Hx Section: No Hx Orthopedic Surgery: No Anesthesia Reaction: No - PPD History Previous Implant?: Yes Documented Results: Negative w/proof Implanted On Prior R Admission?: Yes Date: 05/21/19 Results: 0mm PPD to be Administered?: No - Smoking Cessation Smoking history: Current every day smoker Have you smoked in the past 12 months: Yes Aproximately how many cigarettes per day: 6 Cigars Per Day: 0 Hx Chewing Tobacco Use: No Initiated information on smoking cessation: Yes 'Breaking Loose' booklet given: 07/03/19 - Substances abused Alcohol Substance route: Oral Frequency: Daily Amount used: 2 pints of [place] Age of first use: 30 Date of last use: 07/03/19 Crack Substance route: Smoking Frequency: Daily Amount used: $400 Age of first use: 30 Date of last use: 07/03/19 Admission Physical Exam [facility] - Vital Signs Vital Signs: Vital Signs - 24 hr 07/03/19 11:41 Temperature 97.6 F Pulse Rate 89 Respiratory 16 Rate Blood Pressure 146/94 - Physical General Appearance: Yes: No Apparent Distress, Mild Distress, Tremorous, Irritable, Sweating, Anxious HEENTM: Yes: EOMI, Hearing grossly Normal, Normal ENT Inspection, Normocephalic , Normal Voice, LOU, Pharynx Normal, Tm's normal Respiratory: Yes: Chest Non-Tender, Lungs Clear, Normal Breath Sounds, No Respiratory Distress, No Accessory Muscle Use Neck: Yes: No masses,lesions,Nodules, Supple, Trachea in good position Breast: Yes: Within Normal Limits Cardiology: Yes: Regular Rhythm, Regular Rate, S1, S2 Abdominal: Yes: Normal Bowel Sounds, Non Tender, Flat, Soft Genitourinary: Yes: Within Normal Limits Back: Yes: Normal Inspection Musculoskeletal: Yes: full range of Motion, Gait Steady, Pelvis Stable Extremities: Yes: Normal Capillary Refill, Normal Inspection, Normal Range of Motion, Non-Tender 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 intact, Fully Oriented, Alert, Motor Strength 5/5, Normal Mood/Affect, Normal Response Integumentary: Yes: Normal Color, Warm Lymphatic: Yes: Within Normal Limits - Diagnostic (1) Alcohol dependence with uncomplicated withdrawal Current Visit: Yes Status: Acute (2) Cocaine dependence Current Visit: Yes Status: Acute (3) Nicotine dependence Current Visit: Yes Status: Acute Qualifiers: Nicotine product type: cigarettes Substance use status: in withdrawal Qualified Code(s): F17.213 - Nicotine dependence, cigarettes, with withdrawal (4) HTN (hypertension) Current Visit: Yes Status: Chronic Qualifiers: Hypertension type: essential hypertension Qualified Code(s): I10 - Essential (primary) hypertension Screened but not Admitted - Documentation of Visit Screened but not Admitted: No Breathalyzer - Breathalyzer Breathalyzer: 0 Urine Drug Screen - Test Device Lot number: [id number] Expiration date: 02/22/21 - Control Is test valid?: Yes - Results Drug screen NEGATIVE: No Urine drug screen results: OMAR-Cocaine, BZO-Benzodiazepines Inpatient Rehab Admission - Rehab Decision to Admit Inpatient rehab admission?: No
[2019-07-03] MEDS ORDERED: MAGNESIUM CITRATE 300 ML BOTTLE PO PRN (12:40)
[2019-07-03] MEDS ORDERED: ACETAMINOPHEN 325 MG TABLET (FP) PO PRN ×2 (12:40)
[2019-07-03] MEDS ORDERED: MAG HYDROX/AL HYDROX/SIMETH 30 ML UNIT-DOSE CUP PO PRN (12:40)
[2019-07-03] MEDS ORDERED: LORazepam 1 MG TABLET PO PRN (12:40)
[2019-07-03] MEDS ORDERED: BISMUTH SUBSALICYLATE 524 MG/30 ML UD PO PRN (12:40)
[2019-07-03] MEDS ORDERED: MELATONIN 5 MG TABLETS PO PRN (12:40)
[2019-07-03] MEDS ORDERED: METHOCARBAMOL 500 MG TABLET PO PRN (12:40)
[2019-07-03] MEDS ORDERED: MAGNESIUM HYDROX 2400MG/30ML ORAL SUSPENSION 30 ML CUP PO PRN (12:40)
[2019-07-03] MEDS ORDERED: hydrOXYzine PAMOATE 25 MG CAPSULE (FP) PO PRN (12:40)
[2019-07-03] MEDS ORDERED: IBUPROFEN 400 MG TABLET (FP) PO PRN (12:40)
[2019-07-03] MEDS ORDERED: MENTHOL/PHENOL 1 EACH UD MM PRN (12:40)
[2019-07-03] MEDS ORDERED: LISINOPRIL 20 MG TABLET (FP) PO ONE (13:00)
--- NOTE | 2019-07-03 13:43 | EKG ---
Test Reason : Blood Pressure : / mmHG Vent. 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
[2019-07-03] MEDS: LORazepam 2 MG TABLET PO SCH ×3 (13:56→22:39)
[2019-07-03 15:48] LABS: HEMATOCRIT 39.9 % (35.4-49); HEMOGLOBIN 13.2 GM/dL (11.7-16.9); MCH 30.1 pg (25.7-33.7); MCHC 33.1 g/dl (32.0-35.9); MEAN PLT VOLUME 9.9 fl (7.5-11.1); PLATELET COUNT 214 K/MM3 (134-434); RBC 4.38 M/mm3 (4.00-5.60); RDW 15.2 % (11.9-15.9); WHITE BLOOD COUNT 7.2 K/mm3 (4.0-10.0)
[2019-07-03 15:56] LABS: ALBUMIN 3.6 g/dl (3.4-5.0); BILIRUBIN,TOTAL 0.5 mg/dL (0.2-1); BLOOD UREA NITROGEN 31.4 mg/dL (7-18); CALCIUM 9.3 mg/dL (8.5-10.1); CREATININE 1.6 mg/dL (0.55-1.3); POTASSIUM 3.5 mmol/L (3.5-5.1)
[2019-07-03] MEDS ORDERED: THIAMINE HCL 100 MG TABLET (FP) PO SCH (22:00)
[2019-07-04] MEDS: LORazepam 2 MG TABLET PO SCH ×3 (06:44→17:42)
[2019-07-04] MEDS ORDERED: NICOTINE 7 MG/24 HOURS TOPICAL PATCH TD SCH (10:00)
[2019-07-04] MEDS ORDERED: PRENATAL VITAMINS W/ FOLIC ACID TABLET (FP) PO SCH (10:00)
[2019-07-04] MEDS ORDERED: HYDROCHLOROTHIAZIDE 12.5 MG CAPSULE (FP) PO SCH (10:00)
--- NOTE | 2019-07-04 11:59 | PN ---
S CIWA - CIWA Score Nausea/Vomitin-No Nausea/No Vomiting Muscle Tremors: 2 Anxiety: 1-Mildly Anxious Agitation: 2 Paroxysmal Sweats: 2 Orientation: 0-Oriented Tacttile Disturbances: 0-None Auditory Disturbances: 0-None Visual Disturbances: 0-None Headache: 0-None Present CIWA-Ar Total Score: 7 [facility] Progress Note (SOAP) Subjective: body aches sweats irritable interrupted sleep Objective: 07/04/19 11:58 Vital Signs Temperature 98.8 F 07/04/19 09:23 Pulse Rate 77 07/04/19 09:23 Respiratory Rate 18 07/04/19 09:23 Blood Pressure 123/79 07/04/19 09:23 O2 Sat by Pulse Oximetry (%) Laboratory Tests 07/03/19 07/03/19 07/03/19 13:00 13:00 13:00 WBC 7.2 RBC 4.38 Hgb 13.2 Hct 39.9 MCV 91.0 MCH 30.1 MCHC 33.1 RDW 15.2 Plt Count 214 MPV 9.9 Sodium 144 Potassium 3.5 Chloride 105 Carbon Dioxide 32 Anion Gap 7 L BUN 31.4 H Creatinine 1.6 H Est GFR (CKD-EPI)AfAm 55.78 Est GFR (CKD-EPI)NonAf 48.13 Random Glucose 65 L Calcium 9.3 Total Bilirubin 0.5 AST 40 H ALT 47 Alkaline Phosphatase 69 Total Protein 7.0 Albumin 3.6 RPR Titer Nonreactive aaox3 labs noted elevated bun and creatine will repeat labs encourage increase fluids Assessment: 07/04/19 11:59 withdrawals Plan: continue detox increase fluids repeat labs
[2019-07-04 18:13] VITALS: BP 160/101; PULSE 102; TEMP 97.2
[2019-07-05] MEDS ORDERED: LORazepam 1 MG TABLET PO SCH (05:00)
[2019-07-06] MEDS ORDERED: LORazepam 0.5 MG TABLET PO PRN
[2019-07-06] MEDS ORDERED: LORazepam 0.5 MG TABLET PO SCH (05:00)
[2019-07-07] MEDS ORDERED: LORazepam 0.5 MG TABLET PO ONE (05:00)
== END 2019-07-04 19:09 | disposition left against medical advice (07) | DRG 770 ==
LOC: YASAS 11:21 → Y6N 12:51
PROVIDERS: ADMIT Allergy & Immunology; ATTEND Allergy & Immunology
PROC: HZ2ZZZZ Detoxification Services for Substance Abuse Treatment (ICD-10-PCS; principal; 2019-07-03)
DX: F10.230 Alcohol dependence with withdrawal, uncomplicated (principal); F14.20 Cocaine dependence, uncomplicated; F12.10 Cannabis abuse, uncomplicated; F17.210 Nicotine dependence, cigarettes, uncomplicated; I10 Essential (primary) hypertension
CPT/HCPCS: 36415; 80053; 85027; 86593; 93005; 93010

== ENCOUNTER 2020-11-28 12:16 | Inpatient (IN) | payer BC ==
[2020-11-28 13:47] VITALS: BMI 31.8
[2020-11-28] MEDS ORDERED: ACETAMINOPHEN 325 MG TABLET (FP) PO PRN ×2 (17:10)
[2020-11-28] MEDS ORDERED: IBUPROFEN 400 MG TABLET (FP) PO PRN (17:10)
[2020-11-28] MEDS ORDERED: MAG HYDROX/AL HYDROX/SIMETH 30 ML UNIT-DOSE CUP PO PRN (17:10)
[2020-11-28] MEDS ORDERED: MENTHOL/PHENOL 1 EACH UD MM PRN (17:10)
[2020-11-28] MEDS ORDERED: MAGNESIUM HYDROX 2400MG/30ML ORAL SUSPENSION 30 ML CUP PO PRN (17:10)
[2020-11-28] MEDS ORDERED: MAGNESIUM CITRATE 300 ML BOTTLE PO PRN (17:10)
[2020-11-28] MEDS ORDERED: ONDANSETRON *ODT* 4 MG TABLET SL PRN (17:10)
[2020-11-28] MEDS ORDERED: NICOTINE POLACRILEX 2 MG GUM BUC PRN (17:10)
[2020-11-28] MEDS ORDERED: METHOCARBAMOL 500 MG TABLET PO PRN (17:10)
[2020-11-28] MEDS ORDERED: BISMUTH SUBSALICYLATE 524 MG/30 ML UD PO PRN (17:10)
[2020-11-28] MEDS ORDERED: chlordiazePOXIDE HCL 25 MG CAPSULE PO PRN (17:10)
[2020-11-28] MEDS: PRENATAL VITAMINS W/ FOLIC ACID TABLET (FP) PO SCH (20:15)
[2020-11-28] MEDS: NICOTINE 21 MG/24 HOURS TOPICAL PATCH TD SCH (20:18)
[2020-11-28] MEDS: chlordiazePOXIDE HCL 25 MG CAPSULE PO SCH (23:29)
[2020-11-28] MEDS: THIAMINE HCL 100 MG TABLET (FP) PO SCH (23:29)
[2020-11-28] MEDS: hydrOXYzine PAMOATE 25 MG CAPSULE (FP) PO SCH ×2 (23:31→23:32)
[2020-11-28] MEDS: MELATONIN 5 MG TABLETS PO SCH (23:32)
[2020-11-29] MEDS: chlordiazePOXIDE HCL 25 MG CAPSULE PO SCH ×4 (05:35→22:52)
[2020-11-29] MEDS: hydrOXYzine PAMOATE 25 MG CAPSULE (FP) PO SCH ×5 (05:36→22:52)
[2020-11-29 10:21] LABS: HEMATOCRIT 39.9 % (35.4-49); HEMOGLOBIN 13.5 GM/dL (11.7-16.9); MCH 30.3 pg (25.7-33.7); MCHC 33.9 g/dl (32.0-35.9); MEAN CELL VOLUME 89.5 fl (80-96); MEAN PLT VOLUME 9.5 fl (7.5-11.1); PLATELET COUNT 220 K/MM3 (134-434); RBC 4.46 M/mm3 (4.00-5.60); WHITE BLOOD COUNT 5.2 K/mm3 (4.0-10.0)
[2020-11-29 10:26] LABS: ALBUMIN 3.3 g/dl (3.4-5.0); CALCIUM 8.2 mg/dL (8.5-10.1)
[2020-11-29 10:30] LABS: CREATININE 1.2 mg/dL (0.55-1.3)
[2020-11-29 10:31] LABS: BILIRUBIN,TOTAL 0.5 mg/dL (0.2-1); TOT PROT 6.4 g/dl (6.4-8.2)
[2020-11-29] MEDS: NICOTINE 21 MG/24 HOURS TOPICAL PATCH TD SCH (11:27)
[2020-11-29] MEDS: PRENATAL VITAMINS W/ FOLIC ACID TABLET (FP) PO SCH (11:27)
[2020-11-29] MEDS ORDERED: PATIENT'S OWN MEDICATION (NON-FORMULARY) (Lisinopril/Hydrochlorothiazide [Lisinopril-Hctz PO SCH (11:45)
[2020-11-29] MEDS: LISINOPRIL 10 MG TABLET PO SCH (14:50)
[2020-11-29] MEDS: HYDROCHLOROTHIAZIDE 12.5 MG CAPSULE (FP) PO SCH (14:50)
[2020-11-29] MEDS: MELATONIN 5 MG TABLETS PO SCH (22:52)
[2020-11-29] MEDS: THIAMINE HCL 100 MG TABLET (FP) PO SCH (22:52)
[2020-11-30] MEDS: hydrOXYzine PAMOATE 25 MG CAPSULE (FP) PO SCH ×5 (05:52→23:47)
[2020-11-30] MEDS: chlordiazePOXIDE HCL 25 MG CAPSULE PO SCH ×4 (05:53→23:30)
[2020-11-30] MEDS: PRENATAL VITAMINS W/ FOLIC ACID TABLET (FP) PO SCH (10:51)
[2020-11-30] MEDS: HYDROCHLOROTHIAZIDE 12.5 MG CAPSULE (FP) PO SCH (10:51)
[2020-11-30] MEDS: NICOTINE 21 MG/24 HOURS TOPICAL PATCH TD SCH (10:51)
[2020-11-30] MEDS: LISINOPRIL 10 MG TABLET PO SCH (10:52)
[2020-11-30 21:26] VITALS: BP 126/88; PULSE 92; TEMP 97.5
[2020-11-30] MEDS: MELATONIN 5 MG TABLETS PO SCH (23:47)
[2020-11-30] MEDS: THIAMINE HCL 100 MG TABLET (FP) PO SCH (23:47)
[2020-12-01] MEDS ORDERED: chlordiazePOXIDE HCL 10 MG CAPSULE PO PRN
[2020-12-01] MEDS ORDERED: chlordiazePOXIDE HCL 10 MG CAPSULE PO SCH (05:00)
[2020-12-02] MEDS ORDERED: chlordiazePOXIDE HCL 10 MG CAPSULE PO SCH (05:00)
[2020-12-03] MEDS ORDERED: chlordiazePOXIDE HCL 10 MG CAPSULE PO ONE (05:00)
== END 2020-11-30 23:32 | disposition left against medical advice (07) | DRG 770 ==
LOC: YASAS 12:16 → Y6N 17:55
PROVIDERS: ADMIT Allergy & Immunology; ATTEND Allergy & Immunology
PROC: HZ2ZZZZ Detoxification Services for Substance Abuse Treatment (ICD-10-PCS; principal; 2020-11-28)
DX: F10.230 Alcohol dependence with withdrawal, uncomplicated (principal); F14.20 Cocaine dependence, uncomplicated; F17.210 Nicotine dependence, cigarettes, uncomplicated; F19.24 Other psychoactive substance dependence with psychoactive substance-induced mood disorder; F60.89 Other specific personality disorders; F32.9 Major depressive disorder, single episode, unspecified; I10 Essential (primary) hypertension
CPT/HCPCS: 36415; 71046-TC-FY; 80053; 82310; 85027; 86780; C9803; U0003; U0005

== ENCOUNTER 2021-08-05 13:53 | Inpatient (IN) | payer BC ==
[2021-08-05] MEDS ORDERED: MAG HYDROX/AL HYDROX/SIMETH 30 ML UNIT-DOSE CUP PO PRN (14:49)
[2021-08-05] MEDS ORDERED: BISMUTH SUBSALICYLATE 524 MG/30 ML PO PRN (14:49)
[2021-08-05] MEDS ORDERED: NICOTINE 10 MG CARTRIDGE (INHALER) IH PRN (14:49)
[2021-08-05] MEDS ORDERED: ACETAMINOPHEN 325 MG TABLET (FP) PO PRN ×2 (14:49)
[2021-08-05] MEDS ORDERED: MAGNESIUM HYDROX 2400MG/30ML ORAL SUSPENSION 30 ML CUP PO PRN (14:49)
[2021-08-05] MEDS ORDERED: ONDANSETRON *ODT* 4 MG TABLET SL PRN (14:49)
[2021-08-05] MEDS ORDERED: IBUPROFEN 400 MG TABLET (FP) PO PRN (14:49)
[2021-08-05] MEDS ORDERED: MENTHOL/PHENOL 1 EACH UD MM PRN (14:49)
[2021-08-05] MEDS ORDERED: MAGNESIUM CITRATE 300 ML BOTTLE PO PRN (14:49)
[2021-08-05] MEDS ORDERED: METHOCARBAMOL 500 MG TABLET PO PRN (14:49)
[2021-08-05 15:53] VITALS: BMI 30.7
[2021-08-05] MEDS ORDERED: hydrOXYzine PAMOATE 25 MG CAPSULE (FP) PO ONE (18:49)
[2021-08-05] MEDS: hydrOXYzine PAMOATE 25 MG CAPSULE (FP) PO SCH ×2 (18:51→23:04)
[2021-08-05] MEDS ORDERED: MELATONIN 5 MG TABLETS PO SCH (22:00)
[2021-08-05] MEDS ORDERED: THIAMINE HCL 100 MG TABLET (FP) PO SCH (22:00)
[2021-08-06] MEDS: hydrOXYzine PAMOATE 25 MG CAPSULE (FP) PO SCH ×2 (05:22→10:35)
[2021-08-06] MEDS ORDERED: PRENATAL VITAMINS W/ FOLIC ACID TABLET (FP) PO SCH (10:00)
[2021-08-06] MEDS ORDERED: LISINOPRIL 10 MG TABLET PO SCH (10:00)
[2021-08-06] MEDS ORDERED: PATIENT'S OWN MEDICATION (NON-FORMULARY) (Lisinopril/Hydrochlorothiazide [Lisinopril-Hctz PO SCH (10:00)
[2021-08-06] MEDS ORDERED: HYDROCHLOROTHIAZIDE 12.5 MG CAPSULE (FP) PO SCH (10:00)
[2021-08-06 12:07] LABS: ALBUMIN 3.1 g/dl (3.4-5.0); BLOOD UREA NITROGEN 22.8 mg/dL (7-18); CALCIUM 8.6 mg/dL (8.5-10.1); CREATININE 1.3 mg/dL (0.55-1.3); HEMATOCRIT 38.6 % (35.4-49); HEMOGLOBIN 12.3 GM/dL (11.7-16.9); MCH 28.9 pg (25.7-33.7); MCHC 31.9 g/dl (32.0-35.9); MEAN CELL VOLUME 90.6 fl (80-96); MEAN PLT VOLUME 9.9 fl (7.5-11.1); PLATELET COUNT 183 10^3/uL (134-434); RBC 4.26 M/mm3 (4.00-5.60); RDW 14.4 % (11.9-15.9); TOT PROT 5.6 g/dl (6.4-8.2); WHITE BLOOD COUNT 6.1 K/mm3 (4.0-10.0)
[2021-08-06 12:08] LABS: BILIRUBIN,TOTAL 0.5 mg/dL (0.2-1)
[2021-08-06 12:48] VITALS: BP 130/77; PULSE 81; TEMP 97.8
== END 2021-08-06 13:01 | disposition other institution (70) | DRG 774 ==
LOC: YASAS 13:53 → Y6N 18:53
PROVIDERS: ADMIT Allergy & Immunology; ATTEND Allergy & Immunology
PROC: HZ2ZZZZ Detoxification Services for Substance Abuse Treatment (ICD-10-PCS; principal; 2021-08-05)
DX: F10.230 Alcohol dependence with withdrawal, uncomplicated (principal); F14.20 Cocaine dependence, uncomplicated; F17.210 Nicotine dependence, cigarettes, uncomplicated; F60.9 Personality disorder, unspecified; F32.A Depression, unspecified; F19.24 Other psychoactive substance dependence with psychoactive substance-induced mood disorder; I10 Essential (primary) hypertension
CPT/HCPCS: 36415; 80053; 85027; 86780; C9803-CS; U0003; U0005

== ENCOUNTER 2021-08-06 11:57 | Inpatient (IN) | payer BC ==
[2021-08-06] MEDS ORDERED: MAG HYDROX/AL HYDROX/SIMETH 30 ML UNIT-DOSE CUP PO PRN (13:15)
[2021-08-06] MEDS ORDERED: ACETAMINOPHEN 325 MG TABLET (FP) PO PRN (13:15)
[2021-08-06] MEDS ORDERED: LOPERAMIDE HCL 2 MG CAPSULE PO PRN (13:15)
[2021-08-06] MEDS ORDERED: IBUPROFEN 400 MG TABLET (FP) PO PRN (13:15)
[2021-08-06] MEDS ORDERED: MAGNESIUM HYDROX 2400MG/30ML ORAL SUSPENSION 30 ML CUP PO PRN (13:15)
[2021-08-06] MEDS ORDERED: guaiFENesin 200 MG/10 ML 10 ML UNIT-DOSE CUPS PO PRN (13:15)
[2021-08-06] MEDS ORDERED: MAGNESIUM CITRATE 300 ML BOTTLE PO PRN (13:15)
[2021-08-06] MEDS ORDERED: P-EPHED 60MG/TRIPROLIDI 2.5MG TABLET PO PRN (13:15)
[2021-08-06] MEDS: hydrOXYzine PAMOATE 25 MG CAPSULE (FP) PO SCH ×3 (15:10→21:33)
[2021-08-06] MEDS: MELATONIN 5 MG TABLETS PO SCH (21:33)
[2021-08-06] MEDS: THIAMINE HCL 100 MG TABLET (FP) PO SCH (21:33)
[2021-08-07] MEDS: hydrOXYzine PAMOATE 25 MG CAPSULE (FP) PO SCH ×5 (06:53→21:09)
[2021-08-07] MEDS: HYDROCHLOROTHIAZIDE 12.5 MG CAPSULE (FP) PO SCH (09:43)
[2021-08-07] MEDS: PRENATAL VITAMINS W/ FOLIC ACID TABLET (FP) PO SCH (09:43)
[2021-08-07] MEDS: LISINOPRIL 10 MG TABLET PO SCH (09:43)
[2021-08-07] MEDS: NICOTINE 7 MG/24 HOURS TOPICAL PATCH TD SCH (09:43)
[2021-08-07] MEDS: THIAMINE HCL 100 MG TABLET (FP) PO SCH (21:09)
[2021-08-07] MEDS: MELATONIN 5 MG TABLETS PO SCH (21:09)
[2021-08-08] MEDS: hydrOXYzine PAMOATE 25 MG CAPSULE (FP) PO SCH ×5 (06:22→21:16)
[2021-08-08] MEDS: PRENATAL VITAMINS W/ FOLIC ACID TABLET (FP) PO SCH (10:01)
[2021-08-08] MEDS: LISINOPRIL 10 MG TABLET PO SCH (10:01)
[2021-08-08] MEDS: HYDROCHLOROTHIAZIDE 12.5 MG CAPSULE (FP) PO SCH (10:01)
[2021-08-08] MEDS: NICOTINE 7 MG/24 HOURS TOPICAL PATCH TD SCH (10:02)
[2021-08-08] MEDS: THIAMINE HCL 100 MG TABLET (FP) PO SCH (21:16)
[2021-08-08] MEDS: MELATONIN 5 MG TABLETS PO SCH (21:16)
[2021-08-09] MEDS: hydrOXYzine PAMOATE 25 MG CAPSULE (FP) PO SCH ×5 (06:23→21:50)
[2021-08-09] MEDS: HYDROCHLOROTHIAZIDE 12.5 MG CAPSULE (FP) PO SCH (09:37)
[2021-08-09] MEDS: LISINOPRIL 10 MG TABLET PO SCH (09:37)
[2021-08-09] MEDS: PRENATAL VITAMINS W/ FOLIC ACID TABLET (FP) PO SCH (09:38)
[2021-08-09] MEDS: NICOTINE 7 MG/24 HOURS TOPICAL PATCH TD SCH (09:38)
[2021-08-09 10:06] LABS: CALCIUM 8.9 mg/dL (8.5-10.1)
[2021-08-09 10:09] LABS: CALCIUM 8.6 mg/dL (8.5-10.1)
[2021-08-09 10:10] LABS: ALBUMIN 3.2 g/dl (3.4-5.0); BLOOD UREA NITROGEN 17.7 mg/dL (7-18)
[2021-08-09 10:10] LABS: CREATININE 1.4 mg/dL (0.55-1.3)
[2021-08-09 10:13] LABS: CREATININE 1.4 mg/dL (0.55-1.3)
[2021-08-09 10:15] LABS: BILIRUBIN,TOTAL 0.6 mg/dL (0.2-1); TOT PROT 6.1 g/dl (6.4-8.2)
[2021-08-09] MEDS ORDERED: POTASSIUM CHLORIDE ORAL LIQUID 20 MEQ/15 ML PO ONE (10:45)
[2021-08-09] MEDS: THIAMINE HCL 100 MG TABLET (FP) PO SCH (21:50)
[2021-08-09] MEDS: MELATONIN 5 MG TABLETS PO SCH (21:50)
[2021-08-09] MEDS: POTASSIUM CHLORIDE ORAL LIQUID 20 MEQ/15 ML PO SCH (21:51)
[2021-08-10] MEDS: hydrOXYzine PAMOATE 25 MG CAPSULE (FP) PO SCH ×5 (06:45→21:56)
[2021-08-10] MEDS: NICOTINE 7 MG/24 HOURS TOPICAL PATCH TD SCH (10:04)
[2021-08-10] MEDS: PRENATAL VITAMINS W/ FOLIC ACID TABLET (FP) PO SCH (10:04)
[2021-08-10] MEDS: LISINOPRIL 10 MG TABLET PO SCH (10:04)
[2021-08-10] MEDS: HYDROCHLOROTHIAZIDE 12.5 MG CAPSULE (FP) PO SCH (10:04)
[2021-08-10] MEDS: POTASSIUM CHLORIDE ORAL LIQUID 20 MEQ/15 ML PO SCH ×2 (10:04→21:56)
[2021-08-10] MEDS: THIAMINE HCL 100 MG TABLET (FP) PO SCH (21:56)
[2021-08-10] MEDS: MELATONIN 5 MG TABLETS PO SCH (21:56)
[2021-08-11] MEDS: hydrOXYzine PAMOATE 25 MG CAPSULE (FP) PO SCH (06:44)
[2021-08-11] MEDS: PRENATAL VITAMINS W/ FOLIC ACID TABLET (FP) PO SCH (09:26)
[2021-08-11] MEDS: HYDROCHLOROTHIAZIDE 12.5 MG CAPSULE (FP) PO SCH (09:26)
[2021-08-11] MEDS: LISINOPRIL 10 MG TABLET PO SCH (09:26)
[2021-08-11] MEDS: NICOTINE 7 MG/24 HOURS TOPICAL PATCH TD SCH (09:27)
[2021-08-11] MEDS ORDERED: hydrOXYzine PAMOATE 25 MG CAPSULE (FP) PO PRN (09:41)
[2021-08-11] MEDS: POTASSIUM CHLORIDE ORAL LIQUID 20 MEQ/15 ML PO SCH ×2 (13:36→21:06)
[2021-08-11] MEDS: THIAMINE HCL 100 MG TABLET (FP) PO SCH (21:05)
[2021-08-11] MEDS: MELATONIN 5 MG TABLETS PO SCH (21:05)
[2021-08-12] MEDS: NICOTINE 7 MG/24 HOURS TOPICAL PATCH TD SCH (10:07)
[2021-08-12] MEDS: HYDROCHLOROTHIAZIDE 12.5 MG CAPSULE (FP) PO SCH (10:07)
[2021-08-12] MEDS: POTASSIUM CHLORIDE ORAL LIQUID 20 MEQ/15 ML PO SCH ×2 (10:07→21:54)
[2021-08-12] MEDS: LISINOPRIL 10 MG TABLET PO SCH (10:07)
[2021-08-12] MEDS: PRENATAL VITAMINS W/ FOLIC ACID TABLET (FP) PO SCH (10:07)
[2021-08-12] MEDS: THIAMINE HCL 100 MG TABLET (FP) PO SCH (21:53)
[2021-08-12] MEDS: MELATONIN 5 MG TABLETS PO SCH (21:53)
[2021-08-13] MEDS: HYDROCHLOROTHIAZIDE 12.5 MG CAPSULE (FP) PO SCH (10:15)
[2021-08-13] MEDS: PRENATAL VITAMINS W/ FOLIC ACID TABLET (FP) PO SCH (10:15)
[2021-08-13] MEDS: LISINOPRIL 10 MG TABLET PO SCH (10:15)
[2021-08-13] MEDS: NICOTINE 7 MG/24 HOURS TOPICAL PATCH TD SCH (10:16)
[2021-08-13] MEDS: THIAMINE HCL 100 MG TABLET (FP) PO SCH (21:57)
[2021-08-13] MEDS: MELATONIN 5 MG TABLETS PO SCH (21:57)
[2021-08-14] MEDS: PRENATAL VITAMINS W/ FOLIC ACID TABLET (FP) PO SCH (10:12)
[2021-08-14] MEDS: HYDROCHLOROTHIAZIDE 12.5 MG CAPSULE (FP) PO SCH (10:12)
[2021-08-14] MEDS: NICOTINE 7 MG/24 HOURS TOPICAL PATCH TD SCH (10:12)
[2021-08-14] MEDS: LISINOPRIL 10 MG TABLET PO SCH (10:12)
[2021-08-14] MEDS: THIAMINE HCL 100 MG TABLET (FP) PO SCH (21:40)
[2021-08-14] MEDS: MELATONIN 5 MG TABLETS PO SCH (21:40)
[2021-08-15] MEDS: LISINOPRIL 10 MG TABLET PO SCH (09:57)
[2021-08-15] MEDS: HYDROCHLOROTHIAZIDE 12.5 MG CAPSULE (FP) PO SCH (09:57)
[2021-08-15] MEDS: PRENATAL VITAMINS W/ FOLIC ACID TABLET (FP) PO SCH (09:57)
[2021-08-15] MEDS: NICOTINE 7 MG/24 HOURS TOPICAL PATCH TD SCH (09:58)
[2021-08-15] MEDS: THIAMINE HCL 100 MG TABLET (FP) PO SCH (21:50)
[2021-08-15] MEDS: MELATONIN 5 MG TABLETS PO SCH (21:50)
[2021-08-16] MEDS: LISINOPRIL 10 MG TABLET PO SCH (10:32)
[2021-08-16] MEDS: HYDROCHLOROTHIAZIDE 12.5 MG CAPSULE (FP) PO SCH (10:32)
[2021-08-16] MEDS: PRENATAL VITAMINS W/ FOLIC ACID TABLET (FP) PO SCH (10:32)
[2021-08-16] MEDS: NICOTINE 7 MG/24 HOURS TOPICAL PATCH TD SCH (10:33)
[2021-08-16] MEDS: THIAMINE HCL 100 MG TABLET (FP) PO SCH (21:49)
[2021-08-16] MEDS: TETRAHYDROZOLINE HCL EYE DROPS OU PRN (21:50)
[2021-08-16] MEDS: MELATONIN 5 MG TABLETS PO SCH (21:50)
[2021-08-17] MEDS: PRENATAL VITAMINS W/ FOLIC ACID TABLET (FP) PO SCH (09:36)
[2021-08-17] MEDS: HYDROCHLOROTHIAZIDE 12.5 MG CAPSULE (FP) PO SCH (09:36)
[2021-08-17] MEDS: LISINOPRIL 10 MG TABLET PO SCH (09:36)
[2021-08-17] MEDS: NICOTINE 7 MG/24 HOURS TOPICAL PATCH TD SCH (09:37)
[2021-08-17] MEDS: TETRAHYDROZOLINE HCL EYE DROPS OU PRN (16:47)
[2021-08-17] MEDS: MELATONIN 5 MG TABLETS PO SCH (21:44)
[2021-08-17] MEDS: THIAMINE HCL 100 MG TABLET (FP) PO SCH (21:44)
[2021-08-18] MEDS: LISINOPRIL 10 MG TABLET PO SCH (10:04)
[2021-08-18] MEDS: TETRAHYDROZOLINE HCL EYE DROPS OU PRN (10:04)
[2021-08-18] MEDS: HYDROCHLOROTHIAZIDE 12.5 MG CAPSULE (FP) PO SCH (10:04)
[2021-08-18] MEDS: PRENATAL VITAMINS W/ FOLIC ACID TABLET (FP) PO SCH (10:04)
[2021-08-18] MEDS: NICOTINE 7 MG/24 HOURS TOPICAL PATCH TD SCH (10:05)
[2021-08-18] MEDS: MELATONIN 5 MG TABLETS PO SCH (21:42)
[2021-08-18] MEDS: THIAMINE HCL 100 MG TABLET (FP) PO SCH (21:42)
[2021-08-19] MEDS: HYDROCHLOROTHIAZIDE 12.5 MG CAPSULE (FP) PO SCH (10:05)
[2021-08-19] MEDS: LISINOPRIL 10 MG TABLET PO SCH (10:05)
[2021-08-19] MEDS: TETRAHYDROZOLINE HCL EYE DROPS OU PRN (10:05)
[2021-08-19] MEDS: PRENATAL VITAMINS W/ FOLIC ACID TABLET (FP) PO SCH (10:05)
[2021-08-19] MEDS: NICOTINE 7 MG/24 HOURS TOPICAL PATCH TD SCH (10:06)
[2021-08-19] MEDS: MELATONIN 5 MG TABLETS PO SCH (23:15)
[2021-08-19] MEDS: THIAMINE HCL 100 MG TABLET (FP) PO SCH (23:15)
[2021-08-20] MEDS: HYDROCHLOROTHIAZIDE 12.5 MG CAPSULE (FP) PO SCH (09:54)
[2021-08-20] MEDS: LISINOPRIL 10 MG TABLET PO SCH (09:54)
[2021-08-20] MEDS: NICOTINE 7 MG/24 HOURS TOPICAL PATCH TD SCH (09:55)
[2021-08-20] MEDS: PRENATAL VITAMINS W/ FOLIC ACID TABLET (FP) PO SCH (09:55)
[2021-08-20] MEDS: TETRAHYDROZOLINE HCL EYE DROPS OU PRN (09:55)
[2021-08-20] MEDS: MELATONIN 5 MG TABLETS PO SCH (21:26)
[2021-08-20] MEDS: THIAMINE HCL 100 MG TABLET (FP) PO SCH (21:26)
[2021-08-21] MEDS: HYDROCHLOROTHIAZIDE 12.5 MG CAPSULE (FP) PO SCH (09:29)
[2021-08-21] MEDS: LISINOPRIL 10 MG TABLET PO SCH (09:29)
[2021-08-21] MEDS: PRENATAL VITAMINS W/ FOLIC ACID TABLET (FP) PO SCH (09:30)
[2021-08-21] MEDS: NICOTINE 7 MG/24 HOURS TOPICAL PATCH TD SCH (10:45)
[2021-08-21] MEDS: THIAMINE HCL 100 MG TABLET (FP) PO SCH (21:30)
[2021-08-21] MEDS: MELATONIN 5 MG TABLETS PO SCH (21:30)
[2021-08-22] MEDS: LISINOPRIL 10 MG TABLET PO SCH (09:46)
[2021-08-22] MEDS: HYDROCHLOROTHIAZIDE 12.5 MG CAPSULE (FP) PO SCH (09:46)
[2021-08-22] MEDS: TETRAHYDROZOLINE HCL EYE DROPS OU PRN (09:47)
[2021-08-22] MEDS: NICOTINE 7 MG/24 HOURS TOPICAL PATCH TD SCH (09:47)
[2021-08-22] MEDS: PRENATAL VITAMINS W/ FOLIC ACID TABLET (FP) PO SCH (09:47)
[2021-08-22] MEDS: THIAMINE HCL 100 MG TABLET (FP) PO SCH (21:10)
[2021-08-22] MEDS: MELATONIN 5 MG TABLETS PO SCH (23:56)
[2021-08-23] MEDS: HYDROCHLOROTHIAZIDE 12.5 MG CAPSULE (FP) PO SCH (09:54)
[2021-08-23] MEDS: TETRAHYDROZOLINE HCL EYE DROPS OU PRN (09:54)
[2021-08-23] MEDS: PRENATAL VITAMINS W/ FOLIC ACID TABLET (FP) PO SCH (09:54)
[2021-08-23] MEDS: LISINOPRIL 10 MG TABLET PO SCH (09:54)
[2021-08-23] MEDS: NICOTINE 7 MG/24 HOURS TOPICAL PATCH TD SCH (09:54)
[2021-08-23] MEDS: NICOTINE 10 MG CARTRIDGE (INHALER) IH PRN (12:38)
[2021-08-23] MEDS: MELATONIN 5 MG TABLETS PO SCH (21:52)
[2021-08-23] MEDS: THIAMINE HCL 100 MG TABLET (FP) PO SCH (21:53)
[2021-08-24] MEDS: NICOTINE 7 MG/24 HOURS TOPICAL PATCH TD SCH (10:02)
[2021-08-24] MEDS: PRENATAL VITAMINS W/ FOLIC ACID TABLET (FP) PO SCH (10:02)
[2021-08-24] MEDS: HYDROCHLOROTHIAZIDE 12.5 MG CAPSULE (FP) PO SCH (10:02)
[2021-08-24] MEDS: LISINOPRIL 10 MG TABLET PO SCH (10:02)
[2021-08-24] MEDS: TETRAHYDROZOLINE HCL EYE DROPS OU PRN (10:02)
[2021-08-24] MEDS: THIAMINE HCL 100 MG TABLET (FP) PO SCH (22:19)
[2021-08-24] MEDS: MELATONIN 5 MG TABLETS PO SCH (22:19)
[2021-08-25] MEDS: HYDROCHLOROTHIAZIDE 12.5 MG CAPSULE (FP) PO SCH (09:52)
[2021-08-25] MEDS: NICOTINE 7 MG/24 HOURS TOPICAL PATCH TD SCH (09:52)
[2021-08-25] MEDS: PRENATAL VITAMINS W/ FOLIC ACID TABLET (FP) PO SCH (09:52)
[2021-08-25] MEDS: LISINOPRIL 10 MG TABLET PO SCH (09:52)
[2021-08-25] MEDS: THIAMINE HCL 100 MG TABLET (FP) PO SCH (21:49)
[2021-08-25] MEDS: MELATONIN 5 MG TABLETS PO SCH (21:49)
[2021-08-26] MEDS: LISINOPRIL 10 MG TABLET PO SCH (09:52)
[2021-08-26] MEDS: HYDROCHLOROTHIAZIDE 12.5 MG CAPSULE (FP) PO SCH (09:52)
[2021-08-26] MEDS: PRENATAL VITAMINS W/ FOLIC ACID TABLET (FP) PO SCH (09:52)
[2021-08-26] MEDS: TETRAHYDROZOLINE HCL EYE DROPS OU PRN (09:53)
[2021-08-26] MEDS: NICOTINE 7 MG/24 HOURS TOPICAL PATCH TD SCH (09:53)
[2021-08-26] MEDS: THIAMINE HCL 100 MG TABLET (FP) PO SCH (21:35)
[2021-08-26] MEDS: MELATONIN 5 MG TABLETS PO SCH (21:36)
[2021-08-27] MEDS: HYDROCHLOROTHIAZIDE 12.5 MG CAPSULE (FP) PO SCH (09:48)
[2021-08-27] MEDS: LISINOPRIL 10 MG TABLET PO SCH (09:48)
[2021-08-27] MEDS: TETRAHYDROZOLINE HCL EYE DROPS OU PRN (09:49)
[2021-08-27] MEDS: PRENATAL VITAMINS W/ FOLIC ACID TABLET (FP) PO SCH (09:49)
[2021-08-27] MEDS: NICOTINE 7 MG/24 HOURS TOPICAL PATCH TD SCH (09:49)
[2021-08-27] MEDS: THIAMINE HCL 100 MG TABLET (FP) PO SCH (21:45)
[2021-08-27] MEDS: MELATONIN 5 MG TABLETS PO SCH (21:46)
[2021-08-28] MEDS: HYDROCHLOROTHIAZIDE 12.5 MG CAPSULE (FP) PO SCH (09:46)
[2021-08-28] MEDS: PRENATAL VITAMINS W/ FOLIC ACID TABLET (FP) PO SCH (09:47)
[2021-08-28] MEDS: LISINOPRIL 10 MG TABLET PO SCH (09:47)
[2021-08-28] MEDS: NICOTINE 7 MG/24 HOURS TOPICAL PATCH TD SCH (09:47)
[2021-08-28] MEDS: THIAMINE HCL 100 MG TABLET (FP) PO SCH (21:44)
[2021-08-28] MEDS: MELATONIN 5 MG TABLETS PO SCH (21:45)
[2021-08-29] MEDS: LISINOPRIL 10 MG TABLET PO SCH (09:42)
[2021-08-29] MEDS: NICOTINE 7 MG/24 HOURS TOPICAL PATCH TD SCH (09:42)
[2021-08-29] MEDS: HYDROCHLOROTHIAZIDE 12.5 MG CAPSULE (FP) PO SCH (09:42)
[2021-08-29] MEDS: PRENATAL VITAMINS W/ FOLIC ACID TABLET (FP) PO SCH (09:42)
[2021-08-29] MEDS: TETRAHYDROZOLINE HCL EYE DROPS OU PRN (09:43)
[2021-08-29] MEDS: MELATONIN 5 MG TABLETS PO SCH (23:50)
[2021-08-29] MEDS: THIAMINE HCL 100 MG TABLET (FP) PO SCH (23:50)
[2021-08-30] MEDS: HYDROCHLOROTHIAZIDE 12.5 MG CAPSULE (FP) PO SCH (09:41)
[2021-08-30] MEDS: LISINOPRIL 10 MG TABLET PO SCH (09:41)
[2021-08-30] MEDS: PRENATAL VITAMINS W/ FOLIC ACID TABLET (FP) PO SCH (09:41)
[2021-08-30] MEDS: NICOTINE 7 MG/24 HOURS TOPICAL PATCH TD SCH (09:41)
[2021-08-30] MEDS: THIAMINE HCL 100 MG TABLET (FP) PO SCH (21:32)
[2021-08-30] MEDS: TETRAHYDROZOLINE HCL EYE DROPS OU PRN (21:34)
[2021-08-30] MEDS: MELATONIN 5 MG TABLETS PO SCH (23:41)
[2021-08-31] MEDS: HYDROCHLOROTHIAZIDE 12.5 MG CAPSULE (FP) PO SCH (09:29)
[2021-08-31] MEDS: PRENATAL VITAMINS W/ FOLIC ACID TABLET (FP) PO SCH (09:29)
[2021-08-31] MEDS: NICOTINE 7 MG/24 HOURS TOPICAL PATCH TD SCH (09:29)
[2021-08-31] MEDS: LISINOPRIL 10 MG TABLET PO SCH (09:29)
[2021-08-31] MEDS: NICOTINE 10 MG CARTRIDGE (INHALER) IH PRN (18:25)
[2021-08-31] MEDS: MELATONIN 5 MG TABLETS PO SCH (21:26)
[2021-08-31] MEDS: THIAMINE HCL 100 MG TABLET (FP) PO SCH (21:26)
[2021-09-01] MEDS: LISINOPRIL 10 MG TABLET PO SCH (09:55)
[2021-09-01] MEDS: HYDROCHLOROTHIAZIDE 12.5 MG CAPSULE (FP) PO SCH (09:55)
[2021-09-01] MEDS: NICOTINE 7 MG/24 HOURS TOPICAL PATCH TD SCH (09:55)
[2021-09-01] MEDS: PRENATAL VITAMINS W/ FOLIC ACID TABLET (FP) PO SCH (09:55)
[2021-09-01] MEDS: MELATONIN 5 MG TABLETS PO SCH (21:33)
[2021-09-01] MEDS: TETRAHYDROZOLINE HCL EYE DROPS OU PRN (21:33)
[2021-09-01] MEDS: THIAMINE HCL 100 MG TABLET (FP) PO SCH (21:33)
[2021-09-02] MEDS: PRENATAL VITAMINS W/ FOLIC ACID TABLET (FP) PO SCH (10:05)
[2021-09-02] MEDS: NICOTINE 7 MG/24 HOURS TOPICAL PATCH TD SCH (10:05)
[2021-09-02] MEDS: LISINOPRIL 10 MG TABLET PO SCH (10:05)
[2021-09-02] MEDS: HYDROCHLOROTHIAZIDE 12.5 MG CAPSULE (FP) PO SCH (10:05)
[2021-09-02] MEDS: MELATONIN 5 MG TABLETS PO SCH (23:35)
[2021-09-02] MEDS: THIAMINE HCL 100 MG TABLET (FP) PO SCH (23:36)
[2021-09-03 07:11] VITALS: TEMP 97.9
[2021-09-03 09:21] VITALS: BP 129/82; PULSE 90
[2021-09-03] MEDS: LISINOPRIL 10 MG TABLET PO SCH (09:42)
[2021-09-03] MEDS: NICOTINE 7 MG/24 HOURS TOPICAL PATCH TD SCH (09:42)
[2021-09-03] MEDS: HYDROCHLOROTHIAZIDE 12.5 MG CAPSULE (FP) PO SCH (09:42)
[2021-09-03] MEDS: PRENATAL VITAMINS W/ FOLIC ACID TABLET (FP) PO SCH (09:42)
== END 2021-09-03 09:46 | disposition home or self-care (01) | DRG 772 ==
LOC: YASAS 11:57 → Y3E 11:58
PROVIDERS: ADMIT Allergy & Immunology; ATTEND Allergy & Immunology
PROC: HZ42ZZZ Group Counseling for Substance Abuse Treatment, Cognitive-Behavioral (ICD-10-PCS; principal; 2021-08-06)
DX: F10.20 Alcohol dependence, uncomplicated (principal); F14.20 Cocaine dependence, uncomplicated; F17.210 Nicotine dependence, cigarettes, uncomplicated; I10 Essential (primary) hypertension; Z59.00 Homelessness unspecified
CPT/HCPCS: 36415; 80048; 80053; 84132; C9803; U0003; U0005

== ENCOUNTER 2022-04-14 14:00 | Inpatient (IN) | payer BC ==
[2022-04-14 16:19] VITALS: BMI 26.4
[2022-04-14] MEDS ORDERED: MAGNESIUM CITRATE 300 ML BOTTLE PO PRN (19:36)
[2022-04-14] MEDS ORDERED: NALOXONE HCL (KLOXXADO) 8 MG SPRAY NS PRN (19:36)
[2022-04-14] MEDS ORDERED: ACETAMINOPHEN 325 MG TABLET (FP) PO PRN ×2 (19:36)
[2022-04-14] MEDS ORDERED: METHOCARBAMOL 500 MG TABLET PO PRN (19:36)
[2022-04-14] MEDS ORDERED: ONDANSETRON *ODT* 4 MG TABLET SL PRN (19:36)
[2022-04-14] MEDS ORDERED: MAG HYDROX/AL HYDROX/SIMETH 30 ML UNIT-DOSE CUP PO PRN (19:36)
[2022-04-14] MEDS ORDERED: MAGNESIUM HYDROX 2400MG/30ML ORAL SUSPENSION 30 ML CUP PO PRN (19:36)
[2022-04-14] MEDS ORDERED: LOPERAMIDE HCL 2 MG CAPSULE PO PRN (19:36)
[2022-04-14] MEDS ORDERED: IBUPROFEN 600 MG TABLET (FP) PO PRN (19:36)
[2022-04-14] MEDS ORDERED: BENZOCAINE/MENTHOL (CHLORASEPTIC ) LOZENGE MM PRN (19:36)
[2022-04-14] MEDS ORDERED: DICYCLOMINE HCL 10 MG CAPSULE PO PRN (19:36)
[2022-04-14] MEDS ORDERED: IBUPROFEN 400 MG TABLET (FP) PO PRN (19:36)
[2022-04-14] MEDS ORDERED: NICOTINE 10 MG CARTRIDGE (INHALER) IH PRN (19:36)
[2022-04-14] MEDS ORDERED: BISMUTH SUBSALICYLATE 524 MG/30 ML PO PRN (19:36)
[2022-04-14] MEDS: hydrOXYzine PAMOATE 25 MG CAPSULE (FP) PO SCH (20:59)
[2022-04-14] MEDS: PRENATAL VITAMINS W/ FOLIC ACID TABLET (FP) PO SCH (21:00)
[2022-04-14] MEDS: LISINOPRIL 20 MG TABLET PO SCH (21:00)
[2022-04-14] MEDS ORDERED: MELATONIN 5 MG TABLETS PO SCH (22:00)
[2022-04-14] MEDS ORDERED: THIAMINE HCL 100 MG TABLET (FP) PO SCH (22:00)
[2022-04-15] MEDS: hydrOXYzine PAMOATE 25 MG CAPSULE (FP) PO SCH ×4 (06:31→17:56)
[2022-04-15 09:14] VITALS: PULSE 83
[2022-04-15] MEDS ORDERED: HYDROCHLOROTHIAZIDE 12.5 MG CAPSULE (FP) PO SCH (10:00)
[2022-04-15] MEDS ORDERED: ATORVASTATIN CA 10 MG TABLET (FP) PO SCH (10:00)
[2022-04-15] MEDS: PRENATAL VITAMINS W/ FOLIC ACID TABLET (FP) PO SCH (10:59)
[2022-04-15] MEDS: LISINOPRIL 20 MG TABLET PO SCH (11:00)
[2022-04-15 12:49] LABS: HEMATOCRIT 37.6 % (35.4-49); MCHC 32.1 g/dl (32.0-35.9); MEAN CELL VOLUME 90.5 fl (80-96); MEAN PLT VOLUME 9.9 fl (7.5-11.1); PLATELET COUNT 191 10^3/uL (134-434); RBC 4.15 M/mm3 (4.00-5.60); RDW 14.9 % (11.9-15.9)
[2022-04-15 13:04] LABS: CALCIUM 8.6 mg/dL (8.5-10.1)
[2022-04-15 13:05] LABS: BLOOD UREA NITROGEN 23.6 mg/dL (7-18)
[2022-04-15 13:08] LABS: CREATININE 1.2 mg/dL (0.55-1.3)
[2022-04-15 13:10] LABS: BILIRUBIN,TOTAL 0.4 mg/dL (0.2-1); TOT PROT 5.6 g/dl (6.4-8.2)
[2022-04-15 13:24] VITALS: BP 151/102; RESP 16; TEMP 97.6
== END 2022-04-15 17:30 | disposition other institution (70) | DRG 773 ==
LOC: YASAS 14:00 → Y6N 19:58 → UNDOADMIN 19:58 → UNDODISIN 04-15 17:30
PROVIDERS: ADMIT Allergy & Immunology; ATTEND Family Medicine Addiction Medicine
PROC: HZ2ZZZZ Detoxification Services for Substance Abuse Treatment (ICD-10-PCS; principal; 2022-04-14)
DX: F11.20 Opioid dependence, uncomplicated (principal); F10.20 Alcohol dependence, uncomplicated; F14.20 Cocaine dependence, uncomplicated; F13.20 Sedative, hypnotic or anxiolytic dependence, uncomplicated; F12.20 Cannabis dependence, uncomplicated; F17.210 Nicotine dependence, cigarettes, uncomplicated; I10 Essential (primary) hypertension; Z59.01 Sheltered homelessness
CPT/HCPCS: 36415; 80053; 85027; 86780; C9803-CS; U0003; U0005

== ENCOUNTER 2022-04-15 17:19 | Inpatient (IN) | payer BC ==
[2022-04-15] MEDS ORDERED: MAGNESIUM HYDROX 2400MG/30ML ORAL SUSPENSION 30 ML CUP PO PRN (17:58)
[2022-04-15] MEDS ORDERED: LOPERAMIDE HCL 2 MG CAPSULE PO PRN (17:58)
[2022-04-15] MEDS ORDERED: guaiFENesin 200 MG/10 ML 10 ML UNIT-DOSE CUPS PO PRN (17:58)
[2022-04-15] MEDS ORDERED: MAG HYDROX/AL HYDROX/SIMETH 30 ML UNIT-DOSE CUP PO PRN (17:58)
[2022-04-15] MEDS ORDERED: MAGNESIUM CITRATE 300 ML BOTTLE PO PRN (17:58)
[2022-04-15] MEDS ORDERED: P-EPHED 60MG/TRIPROLIDI 2.5MG TABLET PO PRN (17:58)
[2022-04-15] MEDS ORDERED: ACETAMINOPHEN 325 MG TABLET (FP) PO PRN (17:58)
[2022-04-15] MEDS ORDERED: IBUPROFEN 400 MG TABLET (FP) PO PRN (17:58)
[2022-04-15] MEDS: hydrOXYzine PAMOATE 25 MG CAPSULE (FP) PO SCH ×2 (19:01→21:27)
[2022-04-15] MEDS: MELATONIN 5 MG TABLETS PO SCH (21:27)
[2022-04-15] MEDS: THIAMINE HCL 100 MG TABLET (FP) PO SCH (21:27)
[2022-04-16] MEDS: hydrOXYzine PAMOATE 25 MG CAPSULE (FP) PO SCH ×2 (06:20→09:41)
[2022-04-16] MEDS: amLODIPine BESYLATE 10 MG TABLET (FP) PO SCH (09:40)
[2022-04-16] MEDS: HYDROCHLOROTHIAZIDE 12.5 MG CAPSULE (FP) PO SCH (09:40)
[2022-04-16] MEDS: NICOTINE 7 MG/24 HOURS TOPICAL PATCH TD SCH (09:40)
[2022-04-16] MEDS: ATORVASTATIN CA 10 MG TABLET (FP) PO SCH (09:41)
[2022-04-16] MEDS: LISINOPRIL 20 MG TABLET PO SCH (09:41)
[2022-04-16] MEDS: PRENATAL VITAMINS W/ FOLIC ACID TABLET (FP) PO SCH (09:42)
[2022-04-16] MEDS: NICOTINE POLACRILEX 2 MG GUM BC PRN (09:43)
[2022-04-16] MEDS ORDERED: hydrOXYzine PAMOATE 25 MG CAPSULE (FP) PO PRN (10:12)
[2022-04-16 16:35] LABS: EPI CELLS 2 /uL (0-25.1); HYALINE CASTS 1 /uL (0-3.1); URINE APPEARANCE CLEAR; URINE BACTERIA 4 /uL (0-1359); URINE BILIRUBIN NEGATIVE (NEGATIVE); URINE COLOR YELLOW; URINE GLUCOSE (UA) NEGATIVE (NEGATIVE); URINE KETONE TRACE (NEGATIVE); URINE LEUK ESTERASE NEGATIVE (NEGATIVE); URINE NITRITE NEGATIVE (NEGATIVE); URINE PROTEIN NEGATIVE (NEGATIVE); URINE RBC 39 /uL (0-23.9); URINE UROBILINOGEN 0.2 mg/dL (0.2-1.0); URINE WBC 2 /uL (0-25.8)
[2022-04-16] MEDS: MELATONIN 5 MG TABLETS PO SCH (23:08)
[2022-04-16] MEDS: THIAMINE HCL 100 MG TABLET (FP) PO SCH (23:08)
[2022-04-17] MEDS: ATORVASTATIN CA 10 MG TABLET (FP) PO SCH (10:10)
[2022-04-17] MEDS: HYDROCHLOROTHIAZIDE 12.5 MG CAPSULE (FP) PO SCH (10:10)
[2022-04-17] MEDS: NICOTINE 7 MG/24 HOURS TOPICAL PATCH TD SCH (10:10)
[2022-04-17] MEDS: amLODIPine BESYLATE 10 MG TABLET (FP) PO SCH (10:11)
[2022-04-17] MEDS: LISINOPRIL 20 MG TABLET PO SCH (10:11)
[2022-04-17] MEDS: PRENATAL VITAMINS W/ FOLIC ACID TABLET (FP) PO SCH (10:12)
[2022-04-17] MEDS: MELATONIN 5 MG TABLETS PO SCH (21:52)
[2022-04-17] MEDS: THIAMINE HCL 100 MG TABLET (FP) PO SCH (21:52)
[2022-04-18] MEDS: NICOTINE 7 MG/24 HOURS TOPICAL PATCH TD SCH (10:03)
[2022-04-18] MEDS: amLODIPine BESYLATE 10 MG TABLET (FP) PO SCH (10:04)
[2022-04-18] MEDS: LISINOPRIL 20 MG TABLET PO SCH (10:04)
[2022-04-18] MEDS: ATORVASTATIN CA 10 MG TABLET (FP) PO SCH (10:04)
[2022-04-18] MEDS: HYDROCHLOROTHIAZIDE 12.5 MG CAPSULE (FP) PO SCH (10:04)
[2022-04-18] MEDS: PRENATAL VITAMINS W/ FOLIC ACID TABLET (FP) PO SCH (10:05)
[2022-04-18] MEDS: THIAMINE HCL 100 MG TABLET (FP) PO SCH (22:13)
[2022-04-18] MEDS: MELATONIN 5 MG TABLETS PO SCH (22:13)
[2022-04-19] MEDS: amLODIPine BESYLATE 10 MG TABLET (FP) PO SCH (10:23)
[2022-04-19] MEDS: NICOTINE POLACRILEX 2 MG GUM BC PRN (10:23)
[2022-04-19] MEDS: LISINOPRIL 20 MG TABLET PO SCH (10:23)
[2022-04-19] MEDS: ATORVASTATIN CA 10 MG TABLET (FP) PO SCH (10:24)
[2022-04-19] MEDS: NICOTINE 7 MG/24 HOURS TOPICAL PATCH TD SCH (10:24)
[2022-04-19] MEDS: PRENATAL VITAMINS W/ FOLIC ACID TABLET (FP) PO SCH (10:24)
[2022-04-19] MEDS: HYDROCHLOROTHIAZIDE 12.5 MG CAPSULE (FP) PO SCH (10:24)
[2022-04-19] MEDS: NICOTINE 10 MG CARTRIDGE (INHALER) IH PRN (18:04)
[2022-04-19] MEDS: THIAMINE HCL 100 MG TABLET (FP) PO SCH (22:24)
[2022-04-19] MEDS: MELATONIN 5 MG TABLETS PO SCH (22:24)
[2022-04-20] MEDS: HYDROCHLOROTHIAZIDE 12.5 MG CAPSULE (FP) PO SCH (10:12)
[2022-04-20] MEDS: amLODIPine BESYLATE 10 MG TABLET (FP) PO SCH (10:12)
[2022-04-20] MEDS: NICOTINE 7 MG/24 HOURS TOPICAL PATCH TD SCH (10:12)
[2022-04-20] MEDS: LISINOPRIL 20 MG TABLET PO SCH (10:12)
[2022-04-20] MEDS: ATORVASTATIN CA 10 MG TABLET (FP) PO SCH (10:12)
[2022-04-20] MEDS: PRENATAL VITAMINS W/ FOLIC ACID TABLET (FP) PO SCH (10:14)
[2022-04-20] MEDS: MELATONIN 5 MG TABLETS PO SCH (21:02)
[2022-04-20] MEDS: THIAMINE HCL 100 MG TABLET (FP) PO SCH (21:02)
[2022-04-21] MEDS: ATORVASTATIN CA 10 MG TABLET (FP) PO SCH (09:38)
[2022-04-21] MEDS: PRENATAL VITAMINS W/ FOLIC ACID TABLET (FP) PO SCH (09:40)
[2022-04-21] MEDS: HYDROCHLOROTHIAZIDE 12.5 MG CAPSULE (FP) PO SCH (09:40)
[2022-04-21] MEDS: amLODIPine BESYLATE 10 MG TABLET (FP) PO SCH (09:40)
[2022-04-21] MEDS: NICOTINE 7 MG/24 HOURS TOPICAL PATCH TD SCH (09:41)
[2022-04-21] MEDS: LISINOPRIL 10 MG TABLET PO SCH (10:56)
[2022-04-21] MEDS: MELATONIN 5 MG TABLETS PO SCH (21:32)
[2022-04-21] MEDS: THIAMINE HCL 100 MG TABLET (FP) PO SCH (21:32)
[2022-04-22] MEDS: NICOTINE POLACRILEX 2 MG GUM BC PRN (10:30)
[2022-04-22] MEDS: NICOTINE 7 MG/24 HOURS TOPICAL PATCH TD SCH (10:30)
[2022-04-22] MEDS: HYDROCHLOROTHIAZIDE 12.5 MG CAPSULE (FP) PO SCH (10:31)
[2022-04-22] MEDS: LISINOPRIL 10 MG TABLET PO SCH (10:31)
[2022-04-22] MEDS: PRENATAL VITAMINS W/ FOLIC ACID TABLET (FP) PO SCH (10:31)
[2022-04-22] MEDS: amLODIPine BESYLATE 10 MG TABLET (FP) PO SCH (10:31)
[2022-04-22] MEDS: ATORVASTATIN CA 10 MG TABLET (FP) PO SCH (10:31)
[2022-04-22] MEDS: THIAMINE HCL 100 MG TABLET (FP) PO SCH (22:06)
[2022-04-22] MEDS: MELATONIN 5 MG TABLETS PO SCH (22:06)
[2022-04-23] MEDS: LISINOPRIL 10 MG TABLET PO SCH (09:39)
[2022-04-23] MEDS: HYDROCHLOROTHIAZIDE 12.5 MG CAPSULE (FP) PO SCH (09:39)
[2022-04-23] MEDS: ATORVASTATIN CA 10 MG TABLET (FP) PO SCH (09:39)
[2022-04-23] MEDS: amLODIPine BESYLATE 10 MG TABLET (FP) PO SCH (09:40)
[2022-04-23] MEDS: PRENATAL VITAMINS W/ FOLIC ACID TABLET (FP) PO SCH (09:40)
[2022-04-23] MEDS: NICOTINE 7 MG/24 HOURS TOPICAL PATCH TD SCH (09:40)
[2022-04-23] MEDS: NICOTINE POLACRILEX 2 MG GUM BC PRN (09:42)
[2022-04-23] MEDS: MELATONIN 5 MG TABLETS PO SCH (21:27)
[2022-04-23] MEDS: THIAMINE HCL 100 MG TABLET (FP) PO SCH (21:27)
[2022-04-24] MEDS: amLODIPine BESYLATE 10 MG TABLET (FP) PO SCH (10:23)
[2022-04-24] MEDS: ATORVASTATIN CA 10 MG TABLET (FP) PO SCH (10:23)
[2022-04-24] MEDS: PRENATAL VITAMINS W/ FOLIC ACID TABLET (FP) PO SCH (10:24)
[2022-04-24] MEDS: HYDROCHLOROTHIAZIDE 12.5 MG CAPSULE (FP) PO SCH (10:24)
[2022-04-24] MEDS: NICOTINE 7 MG/24 HOURS TOPICAL PATCH TD SCH (10:24)
[2022-04-24] MEDS: LISINOPRIL 10 MG TABLET PO SCH (10:24)
[2022-04-24] MEDS: TOLNAFTATE 1% CREAM 15 GM TUBE TP SCH ×2 (10:26→21:26)
[2022-04-24] MEDS: THIAMINE HCL 100 MG TABLET (FP) PO SCH (21:26)
[2022-04-24] MEDS: MELATONIN 5 MG TABLETS PO SCH (21:26)
[2022-04-25] MEDS: HYDROCHLOROTHIAZIDE 12.5 MG CAPSULE (FP) PO SCH (09:48)
[2022-04-25] MEDS: amLODIPine BESYLATE 10 MG TABLET (FP) PO SCH (09:49)
[2022-04-25] MEDS: LISINOPRIL 10 MG TABLET PO SCH (09:49)
[2022-04-25] MEDS: NICOTINE 7 MG/24 HOURS TOPICAL PATCH TD SCH (09:49)
[2022-04-25] MEDS: PRENATAL VITAMINS W/ FOLIC ACID TABLET (FP) PO SCH (09:49)
[2022-04-25] MEDS: TOLNAFTATE 1% CREAM 15 GM TUBE TP SCH ×2 (09:49→21:57)
[2022-04-25] MEDS: ATORVASTATIN CA 10 MG TABLET (FP) PO SCH (09:49)
[2022-04-25] MEDS: NICOTINE POLACRILEX 2 MG GUM BC PRN (09:50)
[2022-04-25] MEDS: THIAMINE HCL 100 MG TABLET (FP) PO SCH (21:56)
[2022-04-25] MEDS: MELATONIN 5 MG TABLETS PO SCH (21:57)
[2022-04-26] MEDS: HYDROCHLOROTHIAZIDE 12.5 MG CAPSULE (FP) PO SCH (09:31)
[2022-04-26] MEDS: LISINOPRIL 10 MG TABLET PO SCH (09:31)
[2022-04-26] MEDS: NICOTINE 7 MG/24 HOURS TOPICAL PATCH TD SCH (09:31)
[2022-04-26] MEDS: amLODIPine BESYLATE 10 MG TABLET (FP) PO SCH (09:31)
[2022-04-26] MEDS: PRENATAL VITAMINS W/ FOLIC ACID TABLET (FP) PO SCH (09:31)
[2022-04-26] MEDS: ATORVASTATIN CA 10 MG TABLET (FP) PO SCH (09:31)
[2022-04-26] MEDS: TOLNAFTATE 1% CREAM 15 GM TUBE TP SCH ×2 (09:32→21:38)
[2022-04-26] MEDS: NICOTINE POLACRILEX 2 MG GUM BC PRN ×2 (09:32→17:46)
[2022-04-26] MEDS: THIAMINE HCL 100 MG TABLET (FP) PO SCH (21:38)
[2022-04-26] MEDS: MELATONIN 5 MG TABLETS PO SCH (21:38)
[2022-04-27] MEDS: LISINOPRIL 10 MG TABLET PO SCH (10:24)
[2022-04-27] MEDS: amLODIPine BESYLATE 10 MG TABLET (FP) PO SCH (10:24)
[2022-04-27] MEDS: HYDROCHLOROTHIAZIDE 12.5 MG CAPSULE (FP) PO SCH (10:24)
[2022-04-27] MEDS: ATORVASTATIN CA 10 MG TABLET (FP) PO SCH (10:24)
[2022-04-27] MEDS: NICOTINE 7 MG/24 HOURS TOPICAL PATCH TD SCH (10:25)
[2022-04-27] MEDS: PRENATAL VITAMINS W/ FOLIC ACID TABLET (FP) PO SCH (10:25)
[2022-04-27] MEDS: TOLNAFTATE 1% CREAM 15 GM TUBE TP SCH ×2 (10:25→21:35)
[2022-04-27] MEDS: NICOTINE 10 MG CARTRIDGE (INHALER) IH PRN (10:26)
[2022-04-27] MEDS: THIAMINE HCL 100 MG TABLET (FP) PO SCH (21:34)
[2022-04-27] MEDS: MELATONIN 5 MG TABLETS PO SCH (21:34)
[2022-04-28] MEDS: ATORVASTATIN CA 10 MG TABLET (FP) PO SCH (10:06)
[2022-04-28] MEDS: NICOTINE 7 MG/24 HOURS TOPICAL PATCH TD SCH (10:06)
[2022-04-28] MEDS: HYDROCHLOROTHIAZIDE 12.5 MG CAPSULE (FP) PO SCH (10:06)
[2022-04-28] MEDS: amLODIPine BESYLATE 10 MG TABLET (FP) PO SCH (10:06)
[2022-04-28] MEDS: LISINOPRIL 10 MG TABLET PO SCH (10:07)
[2022-04-28] MEDS: PRENATAL VITAMINS W/ FOLIC ACID TABLET (FP) PO SCH (10:07)
[2022-04-28] MEDS: TOLNAFTATE 1% CREAM 15 GM TUBE TP SCH ×2 (10:08→21:49)
[2022-04-28] MEDS: THIAMINE HCL 100 MG TABLET (FP) PO SCH (21:49)
[2022-04-28] MEDS: MELATONIN 5 MG TABLETS PO SCH (21:50)
[2022-04-29 07:01] VITALS: RESP 18; TEMP 97.7
[2022-04-29 09:06] VITALS: BP 103/63; PULSE 84
[2022-04-29] MEDS: ATORVASTATIN CA 10 MG TABLET (FP) PO SCH (09:19)
[2022-04-29] MEDS: PRENATAL VITAMINS W/ FOLIC ACID TABLET (FP) PO SCH (09:19)
[2022-04-29] MEDS: LISINOPRIL 10 MG TABLET PO SCH (09:20)
[2022-04-29] MEDS: amLODIPine BESYLATE 10 MG TABLET (FP) PO SCH (09:20)
[2022-04-29] MEDS: NICOTINE 7 MG/24 HOURS TOPICAL PATCH TD SCH (09:20)
[2022-04-29] MEDS: HYDROCHLOROTHIAZIDE 12.5 MG CAPSULE (FP) PO SCH (09:20)
[2022-04-29] MEDS: TOLNAFTATE 1% CREAM 15 GM TUBE TP SCH (09:20)
== END 2022-04-29 09:25 | disposition home or self-care (01) | DRG 772 ==
LOC: YASAS 17:19 → Y3E 17:21
PROVIDERS: ADMIT Allergy & Immunology; ATTEND Psychiatry & Neurology Pain Medicine
PROC: HZ42ZZZ Group Counseling for Substance Abuse Treatment, Cognitive-Behavioral (ICD-10-PCS; principal; 2022-04-15)
DX: F10.20 Alcohol dependence, uncomplicated (principal); F13.20 Sedative, hypnotic or anxiolytic dependence, uncomplicated; F14.20 Cocaine dependence, uncomplicated; F11.20 Opioid dependence, uncomplicated; F12.20 Cannabis dependence, uncomplicated; F17.210 Nicotine dependence, cigarettes, uncomplicated; I10 Essential (primary) hypertension; Z59.00 Homelessness unspecified
CPT/HCPCS: 36415; 81003; 86803

== ENCOUNTER 2024-07-06 13:45 | Inpatient (IN) | payer BC ==
[2024-07-06] MEDS ORDERED: guaiFENesin 600 MG TABLET.ER (FP) PO PRN (14:21)
[2024-07-06] MEDS ORDERED: DICYCLOMINE HCL 10 MG CAPSULE PO PRN (14:21)
[2024-07-06] MEDS ORDERED: POLYETHYLENE GLYCOL (HEALTHYLAX) 3350 17 GM PACKET PO PRN (14:21)
[2024-07-06] MEDS ORDERED: MAG HYDROX/AL HYDROX/SIMETH 30 ML UNIT-DOSE CUP PO PRN (14:21)
[2024-07-06] MEDS ORDERED: ONDANSETRON *ODT* 4 MG TABLET SL PRN (14:21)
[2024-07-06] MEDS ORDERED: BISMUTH SUBSALICYLATE 262 MG/15 ML BTL PO PRN (14:21)
[2024-07-06] MEDS ORDERED: IBUPROFEN 400 MG TABLET (FP) PO PRN (14:21)
[2024-07-06] MEDS ORDERED: NALOXONE (NARCAN) HCL 4 MG/0.1 ML SPRAY NS PRN (14:21)
[2024-07-06] MEDS ORDERED: MAGNESIUM HYDROX 2400MG/30ML ORAL SUSPENSION 30 ML CUP PO PRN (14:21)
[2024-07-06] MEDS ORDERED: LOPERAMIDE HCL 2 MG CAPSULE PO PRN (14:21)
[2024-07-06 14:23] VITALS: BMI 17.6
[2024-07-06] MEDS ORDERED: amLODIPine BESYLATE 5 MG TABLET (FP) ONE (15:05)
[2024-07-06] MEDS ORDERED: cloNIDine HCL 0.1 MG TABLET ONE (15:05)
[2024-07-06] MEDS ORDERED: PRENATAL VITAMINS W/ FOLIC ACID TABLET (FP) PO ONE (15:05)
[2024-07-06] MEDS ORDERED: IBUPROFEN 600 MG TABLET (FP) PO ONE (15:06)
[2024-07-06] MEDS: IBUPROFEN 600 MG TABLET (FP) PO PRN (15:07)
[2024-07-06] MEDS: cloNIDine HCL 0.1 MG TABLET PO STA (15:07)
[2024-07-06] MEDS: PRENATAL VITAMINS W/ FOLIC ACID TABLET (FP) PO SCH (15:07)
[2024-07-06] MEDS: NICOTINE 14 MG/24 HOURS TOPICAL PATCH TD SCH (15:08)
[2024-07-06] MEDS: amLODIPine BESYLATE 10 MG TABLET (FP) PO SCH (15:08)
[2024-07-06] MEDS ORDERED: chlordiazePOXIDE HCL 25 MG CAPSULE PO PRN (15:35)
[2024-07-06] MEDS: chlordiazePOXIDE HCL 25 MG CAPSULE PO SCH (17:25)
[2024-07-06] MEDS: ACETAMINOPHEN 325 MG TABLET (FP) PO PRN (17:27)
[2024-07-06] MEDS: hydrOXYzine PAMOATE 25 MG CAPSULE (FP) PO PRN (17:27)
[2024-07-06] MEDS: METHOCARBAMOL 500 MG TABLET PO PRN (17:27)
[2024-07-06] MEDS: BENZOCAINE/MENTHOL (CHLORASEPTIC ) LOZENGE MM PRN (20:17)
[2024-07-06] MEDS: MELATONIN 5 MG TABLETS PO SCH (22:22)
[2024-07-06] MEDS: THIAMINE 100 MG TABLET PO SCH (22:22)
[2024-07-07] MEDS: BENZONATATE 200 MG CAPSULE PO PRN (02:20)
[2024-07-07] MEDS: HYDROCHLOROTHIAZIDE 12.5 MG CAPSULE (FP) PO SCH (10:25)
[2024-07-07] MEDS: ATORVASTATIN CA 10 MG TABLET (FP) PO SCH (10:25)
[2024-07-07] MEDS: LISINOPRIL 20 MG TABLET PO SCH (10:28)
[2024-07-07 12:51] LABS: CHLORIDE 102 mmol/L (98-107); SODIUM 142 mmol/L (136-145)
[2024-07-07 12:54] LABS: CALCIUM 8.7 mg/dL (8.5-10.1)
[2024-07-07 12:55] LABS: ALBUMIN 3.3 g/dl (3.4-5.0); ANION GAP 6 mmol/L (4-13); CO2 34 mmol/L (21-32)
[2024-07-07 12:57] LABS: BLOOD UREA NITROGEN 44.8 mg/dL (7-18); GLUCOSE,RANDOM 130 mg/dL (74-106)
[2024-07-07 12:58] LABS: CREATININE 2.2 mg/dL (0.55-1.3); SGOT/AST 31 U/L (15-37); SGPT/ALT 30 U/L (13-61)
[2024-07-07 12:59] LABS: BILIRUBIN,TOTAL 0.4 mg/dL (0.2-1); TOT PROT 5.9 g/dl (6.4-8.2)
[2024-07-07 13:00] LABS: ALK PHOS 57 U/L (45-117)
[2024-07-07 13:04] LABS: HEMATOCRIT 32.4 % (35.4-49); HEMOGLOBIN 10.6 GM/dL (11.7-16.9); MCH 30.6 pg (25.7-33.7); MCHC 32.8 g/dl (32.0-35.9); MEAN CELL VOLUME 93.2 fl (80-96); MEAN PLT VOLUME 9.1 fl (7.5-11.1); PLATELET COUNT 202 10^3/uL (134-434); RBC 3.48 M/mm3 (4.00-5.60); RDW 13.5 % (11.9-15.9); WHITE BLOOD COUNT 5.6 K/mm3 (4.0-10.0)
[2024-07-07] MEDS: POTASSIUM CHLORIDE ORAL LIQUID 20 MEQ/15 ML PO ONE (14:25)
[2024-07-08] MEDS: chlordiazePOXIDE HCL 25 MG CAPSULE PO SCH (05:40)
[2024-07-08 10:05] LABS: POTASSIUM 3.4 mmol/L (3.5-5.1)
[2024-07-08 10:15] LABS: BLOOD UREA NITROGEN 40.5 mg/dL (7-18); CALCIUM 9.4 mg/dL (8.5-10.1)
[2024-07-08 10:19] LABS: CREATININE 1.6 mg/dL (0.55-1.3)
[2024-07-08] MEDS: POTASSIUM CHLORIDE ORAL LIQUID 20 MEQ/15 ML PO ONE (13:19)
[2024-07-08] MEDS: LACTULOSE 20 GM/30 ML UDC (FOR ORAL USE ONLY) PO SCH (13:20)
[2024-07-08] MEDS: BENZOCAINE 20 % GEL TUBE MM PRN (19:56)
[2024-07-09] MEDS ORDERED: chlordiazePOXIDE HCL 10 MG CAPSULE PO PRN
[2024-07-09] MEDS: chlordiazePOXIDE HCL 10 MG CAPSULE PO SCH (05:12)
[2024-07-09 06:27] VITALS: BP 148/80; PULSE 84; RESP 16; TEMP 98.2
[2024-07-09] MEDS: NALOXONE (NYS OPIOID OVERDOSE PROGRAM) 4 MG/0.1 ML SPRAY NS SCH (10:41)
[2024-07-10] MEDS ORDERED: chlordiazePOXIDE HCL 10 MG CAPSULE PO SCH (05:00)
[2024-07-11] MEDS ORDERED: chlordiazePOXIDE HCL 10 MG CAPSULE PO ONE (05:00)
== END 2024-07-09 09:00 | disposition home or self-care (01) | DRG 774 ==
LOC: YASAS 13:45 → Y3N 15:20
PROVIDERS: ADMIT Allergy & Immunology; ATTEND Surgery
PROC: HZ2ZZZZ Detoxification Services for Substance Abuse Treatment (ICD-10-PCS; principal; 2024-07-06)
DX: F10.230 Alcohol dependence with withdrawal, uncomplicated (principal); F14.20 Cocaine dependence, uncomplicated; F12.20 Cannabis dependence, uncomplicated; F17.213 Nicotine dependence, cigarettes, with withdrawal; I10 Essential (primary) hypertension; E87.6 Hypokalemia; E72.20 Disorder of urea cycle metabolism, unspecified; N28.9 Disorder of kidney and ureter, unspecified; E78.5 Hyperlipidemia, unspecified; Z56.0 Unemployment, unspecified
CPT/HCPCS: 36415; 80048; 80053; 80307; 82140; 85027; 86780; 93005; 93010